=== PATIENT | male | born 1950 | race Caucasian/White ===

== ENCOUNTER 2018-08-14 19:36 | Inpatient (IN) ==
[2018-08-14] MEDS ORDERED: NORFLEX IM ONE (21:16)
[2018-08-14 22:26] LABS: BASO# 0.04 X1000 (0.0-0.2); BASO% 0.2 % (0.0-0.8); EOS# 0.38 X1000 (0.0-0.7); EOS% 1.9 % (0.0-10.0); HEMOGLOBIN 10.4 g/dL (14.0-18.0); IMM GRAN# 0.15 X1000 (0.0-0.04); IMM GRAN% 0.8 % (0.0-0.5); LYMPH# 0.91 X1000 (1.2-3.4); LYMPH% 4.7 % (20.5-51.1); MCH 29.3 PG (27-31); MCHC 32.5 g/dL (33-37); MCV 90.1 FL (81-99); MONO% 5.1 % (1.7-9.3); MPV 11.4 FL (7.4-10.4); NEUT# 17.08 X1000 (1.4-6.5); NEUT% 87.3 % (42.2-75.2); PLT 497 X1000 (130-400); RBC 3.55 XMIL (4.7-6.1); RDW 13.9 % (11.5-14.5); WBC 19.56 X1000 (4.8-10.8)
--- NOTE | 2018-08-14 23:00 | PROVIDER DOCUMENTATION ---
HPI-General Adult - General Chief Complaint: Weakness Stated Complaint: WEAK/FALLING Time Seen by Provider: 08/14/18 20:50 Source: patient Allergies/Adverse Reactions: Patient Allergies Allergy/AdvReac Type Severity Reaction Status Date / Time No Known Allergies Allergy Verified 09/20/16 09:43 Home Medications: Home Medication List Medication Instructions Recorded Confirmed Last Taken Type Atorvastatin Calcium [Lipitor] 80 mg PO DAILY 06/07/15 08/15/18 09/30/16 04:00 History Diltiazem HCl [Diltiazem 24Hr ER 360 mg PO DAILY 06/07/15 08/15/18 09/30/16 04:00 History (LA)] Ezetimibe [Zetia] 10 mg PO DAILY 06/07/15 08/15/18 09/30/16 04:00 History Levothyroxine [Synthroid] 150 microgm PO DAILY 06/07/15 08/15/18 09/30/16 04:00 History Ramipril 2 tab PO DAILY 06/07/15 08/15/18 09/29/16 07:00 History Calcitriol 0.5 mcg PO EVERY OTHER DAY 09/20/16 08/15/18 09/30/16 04:00 History Furosemide 80 mg PO BID 09/20/16 08/15/18 09/29/16 07:00 History Allopurinol 1 tab PO DAILY 08/15/18 08/15/18 Unknown History Folic Acid/Vit Bcomp,C [Sarah-Luciana 0.8 mg PO DAILY 08/15/18 08/15/18 Unknown History Tablet] Insulin Glargine,Hum.rec.anlog See Protocol 08/15/18 Unknown History [Lantus Solostar] - History of Present Illness -Gen Adult Nature of Presenting Problems: pt present to the ED with B/L leg pain for around 8 weeks, getting worse associated with weakness to the point he can't hold himself today and he fell twice with no injuries. pt denies back pain or recent long trip. he said PCP d/c lipitor recently. pt denies abdominal pain, chest pain, symptoms or cough. he denies fever, chills, dizziness or hypotension. Review of Systems - Adult - REVIEW OF SYSTEMS - ADULT Constitutional: reports: no symptoms reported Eyes: reports: no symptoms reported Ears, Nose, Mouth & Throat: reports: no symptoms reported Cardiovascular: reports: no symptoms reported. denies: chest pain Respiratory: reports: no symptoms reported Gastrointestinal: reports: no symptoms reported Genitourinary: reports: no symptoms reported Musculoskeletal: reports: see HPI Neurological: reports: see HPI Past History - Adult - PAST MEDICAL HISTORY-ADULT Review of Records: reports: Old Records Reviewed, Nursing Assessment Review, Medications Reviewed, Social history reviewed & non-contributory. Cardiovascular: reports: HTN, hyperlipidemia Endocrine/Immune: reports: Diabetes - PRIOR SURGERIES/PROCEDURES Surgical/Procedure History: reports: cholecystectomy - IMMUNIZATION STATUS Childhood Immunizations: See Nurse Assessment Flu Vaccine: See Nurse Assessment - FAMILY HISTORY Family History: reviewed, not pertinent Physical Exam-General - PHYSICAL EXAM-ADULT Initial Vital Signs Reviewed: Yes - CONSTITUTIONAL General Appearance: alert, no apparent distress - EYES Eyes: PERRL/EOMI - HEAD, EARS, NOSE, MOUTH & THROAT HENMT: normocephalic/atraumatic, moist mucous membranes, normal ENT inspection - NECK Neck: non-tender, full range of motion, supple - RESPIRATORY Respiratory: lungs clear, normal breath sounds - CARDIOVASCULAR Cardiovascular: regular rate, rhythm, no edema - GASTROINTESTINAL (ABDOMEN) Abdominal Exam: normal bowel sounds, non tender, soft - MUSCULOSKELETAL Back Exam: no CVA tenderness, no vertebral tenderness. 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 negative: motor weakness - PSYCHIATRIC Psych/Mental Status: normal thought content, normal thought process, oriented x 3 Progress - PLAN OF CARE/RESULTS Progress/Plan/Lab Results: Vital Signs - 8 hr 08/14/18 20:24 08/14/18 20:52 08/14/18 20:57 Temperature 98.7 F Pulse Rate 86 Respiratory Rate 20 Blood Pressure 92/44 157/57 130/71 O2 Sat by Pulse Oximetry 95 08/14/18 21:02 08/14/18 21:08 08/14/18 21:13 Temperature Pulse Rate Respiratory Rate Blood Pressure 149/58 158/44 115/48 O2 Sat by Pulse Oximetry 08/14/18 21:18 08/14/18 21:23 08/14/18 21:28 Temperature Pulse Rate Respiratory Rate Blood Pressure 103/49 132/61 162/67 O2 Sat by Pulse Oximetry 08/14/18 21:32 08/14/18 21:37 08/14/18 21:45 Temperature Pulse Rate Respiratory Rate Blood Pressure 153/66 98/74 85/69 O2 Sat by Pulse Oximetry 08/14/18 21:48 08/14/18 21:53 08/14/18 21:57 Temperature Pulse Rate Respiratory Rate Blood Pressure 107/50 140/59 99/85 O2 Sat by Pulse Oximetry 08/14/18 22:08 08/14/18 22:09 08/14/18 22:13 Temperature Pulse Rate Respiratory Rate Blood Pressure 134/82 145/75 102/58 O2 Sat by Pulse Oximetry 08/14/18 22:17 08/14/18 22:23 Temperature Pulse Rate Respiratory Rate Blood Pressure 117/58 105/48 O2 Sat by Pulse Oximetry Laboratory Results - last 24 hr 08/14/18 21:35 WBC 19.56 H RBC 3.55 L Hgb 10.4 L Hct 32.0 L MCV 90.1 MCH 29.3 MCHC 32.5 L RDW Std Deviation 13.9 Plt Count 497 H MPV 11.4 H Immature Gran % (Auto) 0.8 H Neut % (Auto) 87.3 H Lymph % (Auto) 4.7 L [place] % (Auto) 5.1 Eos % (Auto) 1.9 Baso % (Auto) 0.2 Immature Gran # (Auto) 0.15 H Neut # (Auto) 17.08 H Lymph # (Auto) 0.91 L [place] # (Auto) 1.00 H Eos # (Auto) 0.38 Baso # (Auto) 0.04 Orders Category Date Time Status cxr [CHEST-PORTABLE] [RAD] Stat Exams 08/14/18 22:34 Taken BLOOD CULTURE [BLDCUL] Stat Lab 08/14/18 22:46 Uncollected CBC WITH ELECTRONIC DIFF [HEME] Stat Lab 08/14/18 21:35 Completed CK TOTAL [CHEM] Stat Lab 08/14/18 21:35 Received COMPREHENSIVE METABOLIC PANEL [CHEM] Stat Lab 08/14/18 21:35 Received LACTATE, PLASMA [CHEM] Stat Lab 08/14/18 22:46 Uncollected MAGNESIUM [CHEM] Stat Lab 08/14/18 21:35 Received PHOSPHORUS [CHEM] Stat Lab 08/14/18 21:35 Received TROPONIN T Stat Lab 08/14/18 22:46 Ordered URINALYSIS W/POSS RFLX CULT [URINALYSIS] Stat Lab 08/14/18 22:33 Uncollected Orphenadrine [Norflex] Med 08/14/18 21:16 Discontinued 60 mg IM NOW ONE EKG [EKG] Stat Ther 08/14/18 22:41 Ordered Pt is dialysis pt with leukocytosis. BP was low at somepoint in the ER to the point I couldn't measure manually nor the nurse. dialysis pt usually has lower immunity with leukocutosis I called Nephrology Dr. Aguillon. He recommend broad spectrum AB, NS and admission (treat as presumptive sepsis). pt muscle pain could be from lipitor or could be a rare muscle disease and may need muscle biopsy. further investigation by Hospitalist. pt is dry today and can't provide peritoneal fluid for cultures. CXR and urinalysis unremarkable, infection source if there is any is unclear. Pt assessed multiple times during ER stay. Result Diagrams: 08/16/18 05:06 08/16/18 05:06 Departure - Departure Date of Disposition Decision: 08/16/18 Time of Disposition Decision: 22:58 DIAGNOSIS: ESRD (end stage renal disease) on dialysis, Bilateral leg pain Leukocytosis Qualifiers: Leukocytosis type: unspecified Qualified Code(s): D72.829 - Elevated white blood cell count, unspecified Disposition: ADMITTED INPATIENT 09 Certified Medical Emergency: Emergent Condition: Stable - Critical Care Note This patient required my direct & personal management of CC.: No Attestation - Physician/ LYNDON Attestation Patient care was provided by Advanced Practice Provider:: No The physician spent face to face time with patient:: Yes Advanced Practice Provider documentation review:: Supervising physician onsite and consulted in the evaluation and care of this patient. The physician did have a face to face encounter with the patient.
[2018-08-14 23:03] LABS: ALB/GLOB RATIO 0.7; CALCIUM 7.2 mg/dL (8.8-10.2); MAGNESIUM 2.2 mg/dL (1.5-2.7); POTASSIUM 3.8 mmol/L (3.5-5.1); TOTAL BILIRUBIN 0.23 mg/dL (0.20-1.00); TOTAL PROTEIN 7.4 g/dL (6.3-8.3)
[2018-08-14 23:14] LABS: CREATININE 12.6 mg/dL (0.7-1.2)
[2018-08-14] MEDS ORDERED: HUMULIN R IV ONE (23:15)
[2018-08-14] MEDS ORDERED: VANCOMYCIN 1 GM/NS 1 GM/250 ML IVPB IV ONE (23:35)
[2018-08-14] MEDS ORDERED: NS 1,000 ML IV ONE (23:35)
[2018-08-14] MEDS ORDERED: TAZIDIME 1 GM in NS 50 ML IV ONE (23:35)
--- NOTE | 2018-08-15 00:36 | EKG Report ---
Test Performed on : 08/14/2018 10:53:53 PM Test Reason : weakness Blood Pressure : / mmHG Vent. Rate : 087 BPM Atrial Rate : 088 BPM P-R Int : 166 ms QRS Dur : 094 ms QT Int : 434 ms P-R-T Axes : 054 015 156 degrees QTc Int : 522 ms Normal sinus rhythm. with sinus arrhythmia. ST & T wave abnormality, consider lateral ischemia Prolonged QT Abnormal ECG When compared with ECG of 20-SEP-2016 10:04, Inverted T waves have replaced nonspecific T wave abnormality in Lateral leads QT has lengthened Unconfirmed Result
[2018-08-15 01:37] LABS: URINE SOURCE CATH
[2018-08-15 01:41] LABS: BILIRUBIN URINE NEGATIVE (NEGATIVE); BLOOD URINE MODERATE (NEGATIVE); COLOR YELLOW; GLUCOSE URINE 500 mg/dL (NEGATIVE); KETONE URINE NEGATIVE (NEGATIVE); LEUKOCYTES URINE NEGATIVE (NEGATIVE); NITRITE URINE NEGATIVE (NEGATIVE); PH URINE 5.5; SP GRAVITY URINE 1.014; TURBIDITY URINE HAZY (CLEAR); UROBILINOGEN URINE NORMAL (NORMAL)
[2018-08-15 01:57] LABS: PROTEIN URINE 300 mg/dL (NEGATIVE)
[2018-08-15 02:03] LABS: UR EPITHELIAL CELLS <10 /HPF (<10); URINE BACTERIA NEGATIVE /HPF; URINE CASTS NONE SEEN; URINE CRYSTALS NONE SEEN; URINE RBC <10 /HPF (<10); URINE SMALL ROUND CELLS NONE SEEN; URINE YEAST NONE SEEN
[2018-08-15] MEDS ORDERED: ASPIRIN PO ONE (03:17)
[2018-08-15] MEDS ORDERED: NS 1,000 ML IV SCH (04:17)
[2018-08-15] MEDS ORDERED: TYLENOL PO PRN ×2 (04:17→06:45)
[2018-08-15] MEDS ORDERED: VANCOMYCIN IV PER PHARMACY MISC SCH (04:17)
[2018-08-15 04:42] LABS: URINE WBC 20-40 /HPF (<10)
--- NOTE | 2018-08-15 05:11 | HISTORY AND PHYSICAL ---
PRIMARY CARE PHYSICIAN: [place] Hope MD REASON FOR ADMISSION: Ten-week history of lower extremity pain, 2-day history of lower extremity weakness and ataxia, with fall. HISTORY OF PRESENT ILLNESS: Mr. Remy Lee is a 67-year-old male with past medical history of chronic kidney disease stage 5, on peritoneal dialysis; type 2 diabetes; hypertension; possible peripheral arterial disease; hyperlipidemia; hypothyroidism. He comes in today complaining of 10- week history of worsening lower extremity pain in the posteromedial aspect of both lower extremities, worse when he tries to ambulate. He said the pain is sharp, shooting pain, sometimes radiating down to his feet. He denies any color or discoloration of his lower extremities. He denies any lower back pain, fecal or urinary incontinence, numbness or tingling. He came in today primarily because over the last 2 days he has been unable to stand and says his legs give out on him. He has tried to walk and has fallen several times. He says he has no control of his lower extremities. The patient denies any cardiorespiratory symptoms. No GI or complaints. No abdominal pain. No fever or chills. No recent change in his medications. He is still voiding, but he said that tonight when it was time for his peritoneal dialysis, they were unable to extract any peritoneal fluid. He denies any lightheadedness. No polyuria or polydipsia. No visual changes. No focal weakness elsewhere. REVIEW OF SYSTEMS: Twelve system review was done. Positive findings per HPI. The patient denies any weight loss. ALLERGIES: None. MEDICATIONS: Home medications have not been reconciled, but per old records he is on atorvastatin, Lantus, Lasix, Cardizem, sodium bicarbonate, Norvasc, ramipril, Zetia and Synthroid. PAST SURGICAL HISTORY: He has had cholecystectomy. FAMILY HISTORY: Diabetes, but no cancer, kidney disease or heart disease in first-degree relatives. SOCIAL HISTORY: He does not actively smoke, drink or use drugs. He lives with his . LABORATORY DATA: White count 20,000, hemoglobin and hematocrit 10 and 32, platelets 497,000, 87% neutrophils. BUN is 96 and 12. The last creatinine was 4.8, but that was in 2017. Glucose 349. CK is 224. Troponin 0.43 and this is elevated from 2016 at 0.059. Protein is 300, glucose 500, moderate blood. DIAGNOSTIC DATA: Chest film does not show any gross infiltrates or effusions. Borderline for mild poorly penetrated film. No cardiomegaly. PHYSICAL EXAMINATION: VITAL SIGNS: Blood pressure is 109/73, heart rate 95, respirations 19, temperature is 98.7 degrees. The patient was reportedly noted to have efpo-ca-vjzsrf blood pressure when he came into the hospital. After about 1 L of fluid his blood pressure has come to 107/70 initially. He is 95% on room air; 74% was listed, but this was an error. GENERAL: He is a chronically ill, middle-aged man, not in acute distress. He is alert and oriented to person, place and time, with normal mood and affect. HEENT: Head is normocephalic, atraumatic. Eyes: EOMI. He is anicteric. Not pale. ENT and oropharyngeal exam is grossly normal. No central cyanosis. NECK: Supple. No JVD, carotid bruit or thyromegaly. CHEST: Clear when auscultated with good air entry in both lung almeida. CARDIOVASCULAR: First and second heart sounds heard. No gallops. Ejection systolic murmur 2/6 is heard. Rhythm is regular. ABDOMEN: Full, soft. PD catheter close to the upper quadrant area. No surrounding erythema. Exudation at the site of insertion of PD tube. No tenderness. Bowel sounds normal. No mass or organomegaly. RECTAL: Exam is deferred. EXTREMITIES: The patient has significant diminished pulses distally in all extremities. Barely palpable pulses distally in the right lower extremity. No color discoloration. No edema. No clubbing or peripheral cyanosis. Rhythm is symmetrical and regular in the upper extremities, although weak. NEUROLOGIC: No gross focal deficits. No asterixis. SKIN: Intact. No breakdown, lesions or erythema. He does have chronically healing ulcers on the knees of both lower extremities. MUSCULOSKELETAL: The patient is mildly sarcopenic diffusely. ASSESSMENT: 1. Probable early-onset sepsis. 2. Endstage kidney disease. 3. Uncontrolled type 2 diabetes. 4. Hypertension. 5. Oio-VW-lviqjlqni myocardial infarction type 2. 6. Hypothyroidism. 7. Hyperlipidemia. 8. Lower extremity weakness, questionable. 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 9. Peripheral arterial disease, probably severe. PLAN: Dr. Enrique was contacted, and the patient has been given IV Fortaz and vancomycin, and he will adjust accordingly pending cultures, i.e. blood cultures. The patient is unable to give us any peritoneal aspirate, and hopefully maybe tomorrow he may have some sample to offer us to send off. The patient's troponin is mildly elevated with corresponding CK elevation, which makes me suspect that the elevated troponin could be from underlying chronic kidney disease with demand ischemia. We will do serial cardiac enzymes. Consult Cardiology. Give the patient onetime dose of aspirin, and probably continue with Plavix because the patient's clinical picture is more consistent with peripheral arterial disease. The patient did mention to me that he just got off a long-distance trip, and on my examination which I forgot to include was the patient did have tenderness along the course of his right saphenous vein and tenderness posteriorly in his left leg. We will get both venous Doppler studies. If these are negative, we will recommend CT angiogram to get a better visualization of the patient's arterial tree of his lower extremities; however, though he has findings strongly suggestive of peripheral arterial disease, he has also neurological symptoms. I forgot to mention that his DTRs were equivocal. He did have 3/5 power in his lower extremities. No spinal tenderness was noted. The patient did not have any sensory deficit, but it leads me to wonder this patient does not have some motor neuropathy. MRI was ordered to rule out spinal involvement. If this is normal and he still continues to have this weakness, it will be advisable to consult Neurology for possible further evaluation. Sliding scale and Lantus will be continued in this patient. The patient will be admitted to the unit due to the guarded prognosis of this situation. cc: MD West Cortes MD MTDD
--- NOTE | 2018-08-15 05:18 | Diag Imaging Result Doc PS360 ---
EXAM: CHEST-PORTABLE HISTORY: elevated wbc TECHNIQUE: Chest single view COMPARISON: 06/26/2015 FINDINGS: The lungs are well expanded. The heart is not enlarged. The vessels are not distended. There are no infiltrates. No effusion identified. IMPRESSION: No pneumonia. Electronically signed by Scott Dubon 08/15/2018 5:16 AM
[2018-08-15] MEDS: HEPARIN SUBQ SCH ×2 (05:31→15:48)
[2018-08-15] MEDS: HUMALOG SUBQ SCH ×4 (06:31→21:33)
[2018-08-15] MEDS ORDERED: ROCALTROL PO SCH (09:00)
[2018-08-15 09:25] LABS: BASO# 0.05 X1000 (0.0-0.2); BASO% 0.2 % (0.0-0.8); EOS% 3.2 % (0.0-10.0); HEMATOCRIT 29.9 % (42.0-52.0); HEMOGLOBIN 9.5 g/dL (14.0-18.0); IMM GRAN# 0.15 X1000 (0.0-0.04); IMM GRAN% 0.7 % (0.0-0.5); LYMPH# 1.05 X1000 (1.2-3.4); LYMPH% 4.8 % (20.5-51.1); MCH 29.1 PG (27-31); MCHC 31.8 g/dL (33-37); MCV 91.7 FL (81-99); MONO# 1.33 X1000 (0.11-0.59); MONO% 6.1 % (1.7-9.3); MPV 11.4 FL (7.4-10.4); PLT 444 X1000 (130-400); RBC 3.26 XMIL (4.7-6.1); WBC 21.68 X1000 (4.8-10.8)
[2018-08-15] MEDS: LIPITOR PO SCH (09:39)
[2018-08-15] MEDS: SYNTHROID PO SCH (09:47)
[2018-08-15] MEDS: PLAVIX PO SCH (09:47)
[2018-08-15 09:56] LABS: ALB/GLOB RATIO 0.6; ALBUMIN 2.5 g/dL (3.5-5.0); POTASSIUM 3.4 mmol/L (3.5-5.1); TOTAL BILIRUBIN 0.2 mg/dL (0.20-1.00); TOTAL PROTEIN 6.6 g/dL (6.3-8.3)
[2018-08-15 10:04] LABS: CREATININE 12.8 mg/dL (0.7-1.2)
[2018-08-15 10:05] LABS: CALCIUM 6.6 mg/dL (8.8-10.2)
[2018-08-15 10:21] LABS: SED RATE 130 mm/hr (0-15)
[2018-08-15 11:00] LABS: BANDS 4 % (0-1); LYMPHS 2 % (21-51); MONO 10 % (1-9); SEGS 82 % (42-75)
[2018-08-15 11:01] LABS: HYPOCHROM 1+; LARGE PLATELETS 1+
--- NOTE | 2018-08-15 11:35 | CARDIOLOGY CONSULTATION ---
DATE: 08/15/2018 REASON FOR CONSULTATION: Cardiology was consulted for abnormal troponin. Patient has chronic renal failure on hemodialysis. HISTORY OF PRESENT ILLNESS: Patient comes with complaints of having had arthritis in his knees and has had injected but over the last couple of weeks, he has noticed increasing pain in his lower extremities around the knees as well. They had been to [place] and had returned. He complains of excruciating pain around both knees with radiation up to his groin area. He had venous Dopplers done this morning which was negative for DVT. From a cardiac standpoint, he denies any chest pain. There is no previous cardiac history. Denies palpitations or syncope. REVIEW OF SYSTEM: Gastrointestinal: There is no history of nausea, vomiting, diarrhea. There is no history of hematemesis or melena. Central nervous system: No focal weakness to suggest a CVA or TIA. Genitourinary: There is no dysuria or hematuria. Musculoskeletal: As above. PAST MEDICAL HISTORY: 1. Diabetes. 2. Hypertension. 3. Chronic renal failure on peritoneal dialysis. 4. Hyperlipidemia. 5. Arthritis. 6. History of cholecystectomy. 7. There is no history of alcohol abuse. The patient does not smoke. PHYSICAL EXAMINATION: Vital Signs: Blood pressure was 107/84. Cardiovascular: First and second heart sounds were heard. There was no S3 gallop. Respiratory System: Normal air entry. There are no crepitations and rhonchi. Abdomen: Soft, nontender. There was no guarding. PD catheter was noted. There was no tenderness. Extremities: Patient had significant tenderness in both his knees with tenderness in lower thighs bilaterally as well. LABORATORY DATA: Sodium 138, potassium 3.4, BUN 98, creatinine 12.8, calcium 6.6. Troponin abnormal at 0.388. WBC 21.68, hemoglobin 9.5, hematocrit 29, platelet count of 444,000. ASSESSMENT AND PLAN: Mr. Remy Lee is a 67-year-old gentleman with history of diabetes, hypertension, hyperlipidemia, arthritis, chronic renal failure on peritoneal dialysis. Is admitted with weakness, bilateral lower extremity pain. 1. From a cardiac standpoint, his abnormal troponin is secondary to renal insufficiency. We will get an echocardiogram to assess cardiac and valvular function. Chest x-ray did not reveal any ST-T changes to suggest ischemia or infarction. 2. The patient has significant tenderness of both knees with elevated white count. Blood cultures are pending. I suspect this is septic arthritis. We will consult Orthopedics, in addition Dr. Miles has also been consulted. 3. Hypertension and diabetes. Continue with his home medications. I have not made any other changes. Thank you for the consult. cc: Dayron Pérez MD
[2018-08-15] MEDS: MAXIPIME 1 GM in NS 50 ML IV SCH (11:40)
--- NOTE | 2018-08-15 11:41 | EKG Report ---
Test Performed on : 08/15/2018 11:18:53 AM Test Reason : Elevated troponins Blood Pressure : / mmHG Vent. Rate : 092 BPM Atrial Rate : 092 BPM P-R Int : 162 ms QRS Dur : 090 ms QT Int : 418 ms P-R-T Axes : 050 008 166 degrees QTc Int : 516 ms Normal sinus rhythm. Left ventricular hypertrophy with repolarization abnormality Prolonged QT Abnormal ECG When compared with ECG of 14-AUG-2018 22:53, (Unconfirmed) No significant change was found Confirmed by Jordan Fairchild MD ([id number]) on 08/15/2018 5:00:55 PM
[2018-08-15 12:27] LABS: CK INDEX 2.1 (0.0-2.5); CK-MB 7.16 ng/mL (0.0-5.0)
--- NOTE | 2018-08-15 14:20 | NEPHROLOGY CONSULTATION ---
DATE: 08/15/2018 REASON FOR ADMISSION: A 10-week history of lower extremity pain with weakness and edema with recent fall. Date of consult is 08/15/2018. REASON FOR CONSULT: End-stage renal disease with assistance with medical management. HISTORY OF PRESENT ILLNESS: Mr. Lee is a 67-year-old white male who is known to our outpatient services for chronic kidney disease stage 5D, who receives peritoneal dialysis on a cycler during the evening and nighttime hours. The patient has had complaints of increased lower extremity swelling. We had changed his peritoneal dialysis fluid to assist with his fluid volume management and assist with his swelling. Unfortunately, yesterday, patient states that he became increasingly weak, his legs gave out from under him. He states that he did not pass out. There is no syncopal episode. He does have bilateral lower extremity pain with wounds to bilateral knees that are darkened but healing. No drainage noted. States that he has not had any nausea, vomiting or diarrhea, just poor appetite. No fever or chills. No chest pain. No increased work of breathing. Positive lower extremity swelling. He does deny any lower back pain. No urinary incontinence. No numbness or tingling to the lower extremities. He states that his peritoneal dialysis fluid has been clear, last drained yesterday morning. PAST MEDICAL HISTORY: Positive for end-stage renal disease with peritoneal dialysis treatment per cycler, type 2 diabetes, hypertension, questionable peripheral arterial disease, hyperlipidemia, hypothyroidism, anemia of chronic disease and osteodystrophy of chronic disease. PAST SURGICAL HISTORY: Cholecystectomy, placement of PD catheter. SOCIAL HISTORY: He is . He lives with his spouse. He is on disability. Does not actively smoke, use alcohol or illicit drug use. FAMILY HISTORY: Positive for diabetes, no cancer, positive for kidney disease. No dialysis. No heart disease. No 1st degree relatives. ALLERGIES: No known drug allergies. HOME MEDICATIONS: Have yet to be reconciled. He is on atorvastatin, Lantus, Lasix, Cardizem, sodium bicarbonate, Norvasc, ramipril, Zetia, and Synthroid. REVIEW OF SYSTEMS: Times 10 with pertinent positives listed above in the HPI. VITAL SIGNS: His most recent vital signs, temperature 98.7 degrees, blood pressure 129/77, heart rate 92, respirations 22. He is currently on room air. Last recorded saturation is 100%. He has not voided yet that has been recorded. LABORATORY DATA: Sodium 134, potassium 3.8, chloride 85, CO2 19, BUN 96, creatinine 12.6, glucose 349. His anion gap is 30. His calcium is 7.2, phosphorus 12.3, albumin of 3. White count 19.56, hemoglobin 10.4, hematocrit 32, platelet count 499,000. PHYSICAL EXAMINATION: General: This is a 67-year-old white male resting quietly in bed. He appears chronically ill. No acute distress. Skin: Warm and dry. HEENT: Normocephalic, atraumatic. Conjunctiva is pale pink. He has PALOMO. Mucous membranes are dry. Neck: Supple. Trachea midline. No evidence of JVD. Cardiovascular: Regular rate and rhythm. He has a positive murmur. Lungs: Clear to auscultation bilaterally. Equal excursion on room air. Abdomen: Soft. No tenderness noted. He does have a PD catheter intact without redness or drainage. Genitourinary: Not inspected, minimal void with dialysis assist. Extremities: The patient does have some woodiness to the lower extremities. Slight positive venous stasis. No clubbing or cyanosis. Pulses palpable. Integumentary: No rashes are evident. Patient does have a slight lesion noted to the right side of his nose. He is to see his staffing rn in a month. Neurological: The patient is able to move all extremities well. Alert and oriented x3. No asterixis present. ASSESSMENT AND PLAN: 1. Chronic kidney disease stage 5D. The patient is a peritoneal dialysis patient. He uses a cycler in the evening. He is currently being resuscitated with IV fluid bolus 1500 mL total over the next 10 hours. We will re-evaluate his labs at that time for placement of PD prescription. 2. Electrolytes and acid-base balance. Patient is mildly acidotic secondary to #1. The patient does have a widened anion gap of 30. We will monitor that one. 3. Anemia. This remains low but stable. 4. Possible non-STEMI. This is being evaluated by the primary care team. Cardiology has been consulted. 5. Questionable sepsis. Patient has received vancomycin and Fortaz for a white count of 19.56. Blood cultures are currently pending. I would like to thank you for allowing us to follow with this patient. Dictated by MEÑO Medina for Hermann Aguillon MD Face to face encounter, data reviewed, discussed with Paige Galvan on 08/15/18. I agree with the above assessment and plan of care. cc: MEÑO Medina MD [facility]
[2018-08-15] MEDS: DOXYCYCLINE PO SCH ×2 (16:00→21:20)
--- NOTE | 2018-08-15 19:02 | INFECTIOUS DISEASE CONSULT REP ---
DATE: 08/15/2018 CONCLUSION: The patient has a leukocytosis, the exact etiology of which I am uncertain. He does have leg pain and his CPK is up, and he may have some type of myositis or rhabdomyolysis. RECOMMENDATIONS: I agree with treating the patient with vancomycin, and to this, I have added cefepime, the dose of which has been reduced because the patient is on peritoneal dialysis. Also, I have added doxycycline. I am going to order that peritoneal fluid be sent for cell count and culture. DISCUSSION: The patient tells me approximately 7 weeks ago, his legs became very sore, and in the past week, he has noticed that there is weakness in the legs. He has not had any nausea or vomiting. He has not had any unusual foods that he does not normally have. He did go on a trip to [place], but he was not out in the water, he was not out in the terrazas, and did not notice any ticks on him. The patient's laboratory studies show a white count of 21,680, hemoglobin 9.5, and platelet count 444,000. Creatinine is 12.8, GFR is 4. Liver function studies are normal. CK is 224. Chest x-ray shows no pneumonia. Blood and urine cultures are pending. Urinalysis showed some white cells, but no bacteria. REVIEW OF SYSTEMS: Eyes and ears: He sees and hears okay. Neck: No stiffness. Respiratory: No cough or shortness of breath. Cardiac: No chest pain or palpitations. Gastrointestinal: No nausea, vomiting, or diarrhea. Genitourinary: No dysuria. Neurologic: See present illness. PREVIOUS HOSPITALIZATIONS AND OPERATIONS: He has had a cholecystectomy. He had a port placed for his peritoneal dialysis. MEDICAL DISEASES: Positive for diabetes mellitus, hypertension, and end-stage renal disease for which patient does peritoneal dialysis. INFECTIOUS DISEASE HISTORY: Positive for pneumonia. FAMILY HISTORY: Positive for diabetes mellitus, hypertension, and cancer. SOCIAL HISTORY: [place] . He has dogs and cats for pets. He owns a machine shop. He does not smoke cigarettes, drink alcoholic beverages, or abuse drugs. ALLERGIES: Patient's chart lists no known drug allergies. HOME MEDICATIONS INCLUDE: 1. Allopurinol. 2. Atorvastatin. 3. Diltiazem. 4. Zetia. 5. Furosemide. 6. Insulin. 7. Synthroid. 8. Ramipril. PHYSICAL EXAMINATION: Vital Signs: Temperature is 99 degrees, pulse 92, respirations 23, blood pressure 107/84. General: This seems to be a fairly healthy-appearing, elderly male. He is in no acute distress. Head/eyes/ears/nose/throat: He can hear my spoken words and see near objects. He does not have any white patches in his mouth. Neck: No meningismus. Lungs: Clear to auscultation. Cardiovascular: Heart rate is regular. Abdomen: Soft and nontender. The patient has a peritoneal dialysis catheter in place. The catheter site is not erythematous or purulent. Neurologic: The patient is alert. He can move his arms well. He can move his legs, but he is weak and it does cause him pain to move his legs. There is no erythema around the legs. The patient's memory as regarding his medical history is intact. Integument: No rash noted. Thank you for the consult. cc: London Miles MD
--- NOTE | 2018-08-15 20:02 | ECHO REPORT ---
ORDER DATE: 08/15/2018 INTERPRETING PHYSICIAN: Berto Hayes MD. CLINICAL INDICATIONS: Dyspnea. Possible CHF. M-MODE MEASUREMENTS: Left ventricle end diastole: 4.7 cm. Left ventricle end systole: 3.5 cm. Posterior wall: 0.9 cm. Interventricular septum: 0.9 cm. Left atrium: 3.3 cm. Aortic root: 4.0 cm. SUMMARY OF 2-DIMENSIONAL IMAGIN. Left ventricular function is normal. Ejection fraction is 55%. Optison was added to optimize visualization of endocardium. There is no wall motion abnormality. 2. The right ventricle appears to be normal. 3. The aortic valve appears to be grossly normal. Color flow mapping unremarkable. 4. The mitral annulus shows moderate calcification. Color flow mapping unremarkable. 5. Pulse wave Doppler of mitral inflow shows reversal of the E and the A ratio. Ratio is 0.7. 6. Tissue Doppler of septal and lateral mitral annulus averages 5 cm. 7. There is impaired left ventricular relaxation suggesting diastolic dysfunction. 8. Pulse wave Doppler of pulmonary venous flow is normal. 9. The pulmonic valve is unremarkable. 10.The tricuspid valve shows mild degree of regurgitation. 11.Pulmonary pressure is estimated at 30 to 35 mmHg. 12.There is no pericardial effusion, mass, and no thrombus. Clinical correlation is recommended. cc: MD Amberly Graves MD
--- NOTE | 2018-08-15 20:41 | ORTHOPAEDICS CONSULTATION ---
DATE: 08/15/2018 CHIEF COMPLAINT: Lower extremity weakness. HISTORY OF PRESENT ILLNESS: Mr. Lee is a 67-year-old male, who presents complaining of lower extremity weakness. About 2 weeks ago, he presented to our office where Dr. Irene gave him injections in his bilateral knees. He denies any pain in his knee at this time. The patient was admitted for further medical issues. The patient has a white count of 21,000 and we asked for further evaluation and treatment regarding his bilateral knees to rule out septic arthritis. PAST MEDICAL HISTORY, PAST SURGICAL HISTORY, ALLERGIES AND MEDICATIONS: See the admission history and physical. REVIEW OF SYSTEMS: Positive for bilateral leg weakness. All others negative. PHYSICAL EXAMINATION: General: This is a well developed, well nourished male. He is alert, oriented, cooperative with the examination. He is in no acute distress. Vital Signs: Stable. He is afebrile. HEENT: Head is normocephalic, atraumatic. Neck: Supple. Respiratory: Breathing is nonlabored. Abdomen: Nondistended. Neurologic: Sensation of his bilateral lower extremities is intact. Musculoskeletal: Examination of his bilateral knees reveals no erythema or warmth. There is no effusion noted. He has good range of motion of his bilateral knees without pain. ASSESSMENT: Likely bilateral knee osteoarthritis. PLAN: We do not feel that he has septic arthritis of his bilateral knees at this time. We will continue to monitor him. If he begins to develop increasing pain in his bilateral knees and an effusion, we can aspirate his knee for culture, but we do not feel any fluid on his knee at this time. Dictated by SHELIA Lomeli for Km Mendoza MD cc: SHELIA Lomeli MD
[2018-08-15] MEDS ORDERED: NORCO-7.5 PO ONE (23:16)
[2018-08-15] MEDS: ZOFRAN IV PRN (23:34)
[2018-08-16] MEDS: HEPARIN SUBQ SCH ×2 (04:29→17:31)
[2018-08-16 05:17] LABS: HEMATOCRIT 28.9 % (42.0-52.0); HEMOGLOBIN 9.2 g/dL (14.0-18.0); MCH 29.1 PG (27-31); MCHC 31.8 g/dL (33-37); MCV 91.5 FL (81-99); MPV 11.2 FL (7.4-10.4); PLT 436 X1000 (130-400); RBC 3.16 XMIL (4.7-6.1); RDW 13.9 % (11.5-14.5); WBC 20.11 X1000 (4.8-10.8)
[2018-08-16 05:18] LABS: BASO# 0.04 X1000 (0.0-0.2); BASO% 0.2 % (0.0-0.8); EOS# 0.42 X1000 (0.0-0.7); EOS% 2.1 % (0.0-10.0); IMM GRAN# 0.13 X1000 (0.0-0.04); IMM GRAN% 0.6 % (0.0-0.5); LYMPH# 1.12 X1000 (1.2-3.4); LYMPH% 5.6 % (20.5-51.1); MONO# 0.93 X1000 (0.11-0.59); MONO% 4.6 % (1.7-9.3); NEUT# 17.47 X1000 (1.4-6.5); NEUT% 86.9 % (42.2-75.2)
[2018-08-16] MEDS: HUMALOG SUBQ SCH ×4 (06:46→19:59)
[2018-08-16 06:53] LABS: POTASSIUM 3.9 mmol/L (3.5-5.1)
[2018-08-16 06:54] LABS: ALB/GLOB RATIO 0.7; ALBUMIN 2.4 g/dL (3.5-5.0); TOTAL BILIRUBIN 0.23 mg/dL (0.20-1.00)
[2018-08-16 07:08] LABS: CREATININE 12.8 mg/dL (0.7-1.2)
[2018-08-16 07:09] LABS: CALCIUM 6.4 mg/dL (8.8-10.2)
[2018-08-16] MEDS: LIPITOR PO SCH (08:11)
[2018-08-16] MEDS: DOXYCYCLINE PO SCH ×2 (08:16→20:00)
[2018-08-16] MEDS: SYNTHROID PO SCH (08:16)
[2018-08-16] MEDS: PLAVIX PO SCH (08:17)
--- NOTE | 2018-08-16 09:10 | Diag Imaging Result Doc PS360 ---
EXAM: SHOULDER-RIGHT HISTORY: pain and immobilization TECHNIQUE: Right shoulder two views COMPARISON: None. FINDINGS: No fracture. No dislocation. No separation at the acromioclavicular joint. Long-standing arthritis to the acromioclavicular joint. Severe atherosclerosis. IMPRESSION: Acromioclavicular arthritis. Electronically signed by Scott Dubon 08/16/2018 9:07 AM
--- NOTE | 2018-08-16 09:11 | Diag Imaging Result Doc PS360 ---
EXAM: ELBOW COMPLETE RIGHT HISTORY: pain s/p fall TECHNIQUE: Right elbow, three views COMPARISON: None. FINDINGS: No fracture. No dislocation. Severe atherosclerosis. IMPRESSION: No acute bony injury. Electronically signed by Scott Dubon 08/16/2018 9:08 AM
--- NOTE | 2018-08-16 09:15 | Diag Imaging Result Doc PS360 ---
EXAM: CT LUMBAR SPINE W/O CONTRAST 08/16/2018 HISTORY: fever/back pain TECHNIQUE: This exam was performed using automated exposure control, adjustment of mA or kV according to patient size, and/or use of iterative reconstruction technique. COMMENT: There is extensive arteriosclerosis. There is some perinephric stranding in both kidneys. There is no evidence of abdominal aortic aneurysm. There is no evidence of acute fracture or subluxation in the lumbar spine. There is vacuum disc phenomenon at T11-12 and bridging osteophyte formation at T10-11. There is anterior osteophyte formation at L2-3. There is no evidence of spondylolysis or spondylolisthesis. At the T10-11 level there is no evidence of spinal or foraminal stenosis. At T11-12 there is no evidence of spinal or foraminal stenosis. At T12-L1 there is no spinal or foraminal stenosis. At L1-2 there is no spinal or foraminal stenosis. At L2-3 there is no evidence of spinal or foraminal stenosis. At L3-4 there is some disc bulge and ligamentum flavum hypertrophy without evidence of significant spinal or foraminal stenosis. At the L4-5 level there is ligamentum flavum hypertrophy and disc bulge with a mild degree of spinal stenosis but no evidence of foraminal stenosis. At L5-S1 there is disc bulge slightly to the right of the midline without evidence of significant spinal or foraminal stenosis. IMPRESSION: No evidence of acute bony abnormality. Mild spinal stenosis at L4-5. Electronically signed by Sudhakar Elmore 08/16/2018 9:12 AM
[2018-08-16] MEDS: ZOFRAN IV PRN (10:51)
[2018-08-16 13:17] LABS: CALCIUM 6.1 mg/dL (8.8-10.2)
[2018-08-16 13:36] LABS: BODY FLUID SOURCE PERITONEAL FLUID
[2018-08-16 13:37] LABS: WBC BF 320 /cumm
[2018-08-16 14:07] LABS: MONOS 78 %; POLYS 22 %
--- NOTE | 2018-08-16 14:33 | INFECTIOUS DISEASE PROGRESS NO ---
DATE: 08/16/2018 PRESENT ILLNESS: The patient has pain in his legs, especially in the upper part of both legs. They also are tender. The patient has a leukocytosis. His CPK is elevated. MEDICATIONS: The patient is on a combination of vancomycin and cefepime and doxycycline and it is day 1 of treatment with all 3 of these agents. PHYSICAL EXAMINATION: Vital Signs: Temperature is 99 degrees, pulse 88, respirations 18, blood pressure 119/53. General: This is a somewhat ill-appearing elderly male. He is in no acute distress. Head, Eyes, Ears, Nose, and Throat: Can hear my spoken words and see near objects. He does not have any white patches on his tongue. Neck: No meningismus. Lungs: Clear to auscultation. Cardiovascular: Heart rate is regular. Abdomen: Soft and nontender. The dialysis catheter site is not erythematous or purulent. Extremities: Both legs are tender in the lower thigh area. The patient does not have any swelling of either knee. Neurologic: Patient is alert. He can move his extremities. There is no tremor. ASSESSMENT AND PLAN: Patient tells me overall he is feeling better. Unfortunately, I am unable to say exactly what the cause of his leukocytosis and leg pain is. Since the patient is feeling better, I plan to continue with the current antibiotics, namely cefepime, vancomycin, and doxycycline. Unfortunately, the patient's white count still remains elevated. PATIENT'S COMORBIDITIES: 1. He has end-stage renal disease for which he is on peritoneal dialysis. 2. He also is a diabetic. 3. The patient has multiple areas where he has had some bruises or cuts secondary to when he fell. The areas have eschars on them. There is no surrounding erythema. cc: London Miles MD
--- NOTE | 2018-08-16 15:14 | NEPHROLOGY PROGRESS NOTE ---
DATE: 08/16/2018 TIME SEEN: 0650. SUBJECTIVE: Mr. Lee complains of pain to his upper thigh, inner aspect region, with immobility to his right upper shoulder and elbow. Denies lightheadedness, chest pain, or increased work of breathing. LABORATORY DATA: Sodium 134, potassium 3.9, chloride 91, CO2 of 13, BUN 107, creatinine 12.8, glucose 127, his anion gap is 30, calcium 12.3, phosphorus 12.3. Last albumin completed was low. White count 20.1, hemoglobin 9.2, hematocrit 28.9, with a platelet count of 436,000. The patient had an echocardiogram indicating his ejection fraction of 55%. Blood cultures are negative. PHYSICAL EXAMINATION: Vital Signs: Temperature 98.7 degrees, blood pressure 126/55, heart rate is 80, respirations 18. He is on room air. Last recorded saturation is 96%. He has had 1590 in, 350 out to void. General: This is a 67-year-old white male. He is resting quietly in bed. He appears in no acute distress. Skin: Warm and dry. HEENT: Normocephalic, atraumatic. Conjunctiva is pale pink. He has PALOMO. Mucous membranes are dry. Neck: Supple. Trachea midline. No evidence of JVD. Cardiovascular: He is regular rate and rhythm. He is sinus rhythm on the monitor. He has a soft murmur. No gallop. Lungs: Clear to auscultation bilaterally. Equal excursion on room air. Abdomen: Soft, nontender. Positive bowel sounds. PD catheter remains dry and intact without redness or drainage. Genitourinary: Not inspected. Minimal void with dialysis assist. Extremities: Has some woodiness to the lower extremities. There is a hardened area to both inner aspects of bilateral thighs, right greater than left. There is no lower extremity clubbing or cyanosis. Palpable pulses. Integumentary: Indentation to his bilateral inner aspect of his thighs. No rashes are evident, with slight lesions noted to the right side of his nose. Neurological: The patient moves all extremities well, though with pain to the lower extremities. Minimal movement from the right shoulder. Neurologic: Alert and oriented x3. No asterixis present. ASSESSMENT AND PLAN: 1. Chronic kidney disease stage 5D. The patient is currently dry. We will have them instill 1 liter of peritoneal dialysis fluid to allow dwell time of 2 to 4 hours to send a cell count for Dr. Miles in regards with continued leukocytosis. Otherwise, once this is completed, we will plan for cycler to be placed on this evening per his routine prescription. 2. Electrolytes and acid-base balance. The patient has hyperphosphatemia with a phosphorus of 12.3. Calcium remains low at 6.4. We will check a PTH with calcium and phosphorus. Check a sedimentation rate and a CRP. His TSH this morning is 8.53. 3. Electrolytes and acid-base balance with correction on dialysis. 4. Anemia. This remains stable. 5. Continued leukocytosis. The patient has noted indentation to his bilateral inner aspect of his thighs with an elevated phosphorus, low calcium. We will check a sedimentation rate as mentioned, CRP, and PTH. 6. Hypothyroidism. We will defer to the primary care team. I would like to thank you for allowing us to follow with this patient. CRP, ESR are quite elevated. I asked Dr. Herrera to perform a skin biopsy medial thigh to exclude calciphylaxis. rg Dictated by MEÑO Medina for Hermann Aguillon MD Data reviewed, discussed with Paige Galvan on 08/16/18. I agree with the above assessment and plan of care. rg cc: MEÑO Medina MD [facility]
--- NOTE | 2018-08-16 21:18 | PROGRESS NOTE ---
DATE: 08/16/2018 SUBJECTIVE: The patient is resting comfortably in bed. He states that he has been having some pain in his right elbow and his legs. OBJECTIVE: Vital Signs: Temperature 98.1 degrees, blood pressure 125/59, heart rate 90, respirations 20, O2 saturation is 97% on room air. General: This is a chronically ill-appearing elderly male, lying in bed in no acute distress. Heart: S1, S2 normal. Regular rate and rhythm. Lungs: Clear to auscultation bilaterally. Abdomen: Positive bowel sounds. Soft, nontender, nondistended. Extremities: No edema, no cyanosis. The patient has multiple scabs and healing wounds on his legs. Neurologic: The patient is alert and oriented x4. DIAGNOSTIC STUDIES: White blood cell count 20, hemoglobin 9.2, hematocrit 28, platelets 436,000. Sodium 135, potassium 3.9, chloride 91, CO2 of 13, BUN 107, creatinine 12, glucose 127, calcium 6.1, phosphorus 12, AST 21, ALT 34, alkaline phosphatase 67. Sedimentation rate 132. Albumin 2.4. iPTH 338. TSH 8.5. Elbow x-rays shows no acute bony injury. Lumbar spine CT shows mild spinal stenosis at L4-L5. ASSESSMENT AND PLAN: 1. Elevated troponin without chest pain. Likely secondary to the patient's underlying renal dysfunction. 2. Bilateral leg pain. The patient's sedimentation rate is markedly elevated. No obvious source of infection has been found at this time. The patient is currently on empiric antibiotic therapy. We will check an aldose level as well as an IOANA and monitor the CK closely. There is concern about calciphylaxis. 3. End stage renal disease on peritoneal dialysis. Management as per the counseling services manager. 4. Secondary hyperparathyroidism. Management as per the counseling services manager. 5. Leukocytosis. Unchanged. Continue with antibiotic therapy. 6. Hypothyroidism. Continue on Synthroid. 7. Diabetes mellitus, type 2. Continue on sliding scale insulin. 8. Deep vein thrombosis prophylaxis. Continue on heparin. cc: Amberly Jennings MD MTDD
[2018-08-16] MEDS: NORCO-7.5 PO PRN (22:08)
[2018-08-17] MEDS ORDERED: VANCOMYCIN 1 GM/NS 1 GM/250 ML IVPB IV SCH (02:00)
[2018-08-17 06:04] LABS: BASO# 0.04 X1000 (0.0-0.2); BASO% 0.2 % (0.0-0.8); EOS# 0.39 X1000 (0.0-0.7); EOS% 2.3 % (0.0-10.0); HEMOGLOBIN 9.4 g/dL (14.0-18.0); IMM GRAN# 0.11 X1000 (0.0-0.04); IMM GRAN% 0.7 % (0.0-0.5); LYMPH# 0.94 X1000 (1.2-3.4); LYMPH% 5.6 % (20.5-51.1); MCH 29.6 PG (27-31); MCHC 32.4 g/dL (33-37); MCV 91.2 FL (81-99); MONO# 0.89 X1000 (0.11-0.59); MONO% 5.3 % (1.7-9.3); MPV 11.3 FL (7.4-10.4); NEUT% 85.9 % (42.2-75.2); PLT 476 X1000 (130-400); RBC 3.18 XMIL (4.7-6.1); RDW 13.8 % (11.5-14.5); WBC 16.67 X1000 (4.8-10.8)
[2018-08-17] MEDS ORDERED: XYLOCAINE 1% INJ ONE (06:15)
[2018-08-17] MEDS: HEPARIN SUBQ SCH ×2 (06:51→17:24)
[2018-08-17] MEDS: HUMALOG SUBQ SCH ×4 (06:53→23:31)
[2018-08-17 07:09] LABS: ALBUMIN 2.4 g/dL (3.5-5.0); PHOSPHORUS 9.9 mg/dL (2.7-4.5); POTASSIUM 3.3 mmol/L (3.5-5.1)
[2018-08-17 07:11] LABS: CALCIUM 6.7 mg/dL (8.8-10.2); CREATININE 11.5 mg/dL (0.7-1.2)
[2018-08-17] MEDS: RENVELA POWDER PACKET PO SCH ×3 (09:54→17:15)
[2018-08-17] MEDS: PLAVIX PO SCH (09:54)
[2018-08-17] MEDS: SENSIPAR PO SCH (09:55)
[2018-08-17] MEDS: DOXYCYCLINE PO SCH ×2 (09:55→23:40)
[2018-08-17] MEDS: SYNTHROID PO SCH (10:05)
[2018-08-17] MEDS: ZOFRAN IV PRN ×2 (10:32→18:54)
[2018-08-17 10:45] LABS: BODY FLUID SOURCE PERITONEAL FLUID; WBC BF 10 /cumm
[2018-08-17 10:52] LABS: MONOS 83 %; POLYS 17 %
[2018-08-17] MEDS: MAXIPIME 1 GM in NS 50 ML IV SCH (13:06)
[2018-08-17] MEDS ORDERED: INSULIN PEN NEEDLES ONE (16:38)
[2018-08-17] MEDS: LEVEMIR SUBQ SCH (17:20)
[2018-08-17] MEDS: NORCO-7.5 PO PRN (19:42)
--- NOTE | 2018-08-17 20:01 | INFECTIOUS DISEASE PROGRESS NO ---
DATE: 08/17/2018 PRESENT ILLNESS: Mr. Lee is being treated for a leukocytosis with lower extremity pain and induration noted to his bilateral thighs. MEDICATIONS: He is receiving IV vancomycin per pharmacy dosing and cefepime 1 g IV every 48 hours as renally modified dosing. He is also on doxycycline 100 mg by mouth twice daily. This is day 2 of those medications. PHYSICAL EXAMINATION: Vital Signs: Temperature is 98.6 degrees, pulse rate 92, respiratory rate 18, blood pressure 109/56, O2 saturation is 100% on room air. General: This is a chronically ill- appearing, elderly gentleman. He is lying in the bed, currently in no acute distress. HEENT: Atraumatic, normocephalic. Oral mucous membranes are pink and moist. Conjunctivae are pale. Neck: Supple. Trachea is midline. Cardiovascular: Heart rate and rhythm are regular, sinus rhythm on the monitor. Respiratory: Lung sounds are clear to auscultation bilaterally. No work of breathing is noted. Abdomen: Soft, round, and nontender. Bowel sounds are active. There is a peritoneal dialysis catheter. That site is without edema, erythema, or drainage. Neurologic: He is awake, alert, and oriented. Able to move his extremities independently. Integumentary: Skin is warm and dry. He does have multiple areas of dry scabby abrasions and bruising to his upper and lower extremities, as well as indurated, tender areas to the bilateral medial thighs. LABORATORY AND X-RAY: Today, his white count is 16.67, hemoglobin 9.4, platelet count 476,000. Creatinine is 11.5. GFR 4. Creatine kinase is 217. Peritoneal fluid shows a white blood cell count of 320 with polynuclear WBCs 22 and mononuclears 78. There is a peritoneal dialysis fluid culture pending. Urine and blood cultures have shown no growth. No imaging reports today. ASSESSMENT AND PLAN: Mr. Lee is being treated for a leukocytosis with bilateral thigh pain and induration of the inner thighs. He is receiving broad-spectrum coverage using vancomycin and cefepime, which we will continue. His white count is coming down. He is also receiving doxycycline, which we will continue as well. This is being given for the possibility of a vector-borne illness after the patient has recently traveled out of [facility]. We will get blood work on Monday. These plans have been discussed with and recommended by Dr. Miles. COMORBIDITIES: For Mr. Lee, include that he is elderly, with end-stage renal disease and peritoneal dialysis, diabetes mellitus, and arthritis. Dictated by MEÑO Arango for London Miles MD cc: London Miles MD [facility]
--- NOTE | 2018-08-17 20:15 | GENERAL SURGERY CONSULTATION ---
DATE: 08/17/2018 REQUESTING PHYSICIAN: Dr. Aguillon. REASON FOR CONSULTATION: Consult concerning skin biopsy for calciphylaxis. HISTORY OF PRESENT ILLNESS: A 67-year-old gentleman with a history of chronic kidney disease, peritoneal dialysis, type 2 diabetes, hypertension, possible peripheral artery disease, hyperlipidemia, and hypothyroidism, who initially came in with lower extremity pain. There has been some concern that he might have calciphylaxis developing, although, he does not have obvious skin changes. Given this, Dr. Aguillon wanted a skin biopsy to rule it out. I was consulted. PAST MEDICAL HISTORY: Chronic kidney disease on peritoneal dialysis, type 2 diabetes, hypertension, peripheral artery disease, hyperlipidemia, hypothyroidism. PAST SURGICAL HISTORY: Includes PD catheter placement, cholecystectomy. FAMILY HISTORY: Diabetes. SOCIAL HISTORY: Does not actively smoke. ALLERGIES: None. HOME MEDICATIONS: Reviewed. MAR reviewed. REVIEW OF SYSTEMS: A full 10-point review of systems obtained and negative unless specified in HPI. PHYSICAL EXAMINATION: Vital Signs: Patient is currently afebrile. His vital signs are stable. General: No acute distress. Alert, interactive, male, looks stated age. HEENT: Normocephalic, atraumatic. Pupils equal, round, reactive to light. Mucous membranes moist. Oropharynx benign. Neck: Supple. Trachea midline. Cardiovascular: Regular rate and rhythm. Lungs: Grossly clear. Abdomen: Soft. PD catheter in place. Extremities: Pain to the medial aspect of both knees. There are some areas of induration. Vascular: Are extremities perfused. Neurologic: Grossly intact. Skin: As noted above. LABORATORY: Reviewed. ASSESSMENT AND PLAN: A 67-year-old gentleman with possible calciphylaxis needing skin biopsy. At this point, we will plan on doing this this morning. The risks, benefits, and alternatives were discussed. All questions answered. cc: Cali Herrera MD
--- NOTE | 2018-08-17 20:18 | OPERATIVE NOTE ---
PROCEDURE DATE: 08/17/2018 PREOPERATIVE DIAGNOSIS: Skin biopsy, rule out calciphylaxis. POSTOPERATIVE DIAGNOSIS: Skin biopsy, rule out calciphylaxis. PROCEDURE: Skin biopsy of left medial leg. SURGEON: Cali Herrera MD VP INFORMATICS: None. ANESTHESIA: Local, administered by the surgeon. FINDINGS: As dictated. COMPLICATIONS: None at time of dictation. ESTIMATED BLOOD LOSS: 5 mL. SPECIMEN: Skin. BRIEF HISTORY: A 67-year-old gentleman with concern about calciphylaxis. The risks, benefits and alternatives for the skin biopsy were discussed. All questions answered. DESCRIPTION OF PROCEDURE: After informed consent was obtained, the patient remained in his room in the hospital. The medial part of the left leg was prepped and draped in sterile fashion. A formal time-out was then performed confirming patient, date and procedure. All were in agreement. At that time I used a local anesthetic to anesthetize the skin. Using the 3.5 mm punch biopsy, we took 2 areas down to the skin and removed them. I used scissors and scalpel to completely remove them. We then closed it with a [id number] [id number] chromic, with good results. We placed a sterile dressing. The patient tolerated the procedure well and remained in his bed. We sent the specimen down to Pathology. cc: Cali Herrera MD
--- NOTE | 2018-08-17 21:38 | NEPHROLOGY PROGRESS NOTE ---
DATE: 08/17/2018 SUBJECTIVE: Patient resting in bed. No complaints this morning. OBJECTIVE: Vital Signs: Temperature 98 degrees, pulse 92, respiratory rate 17, blood pressure 99/55. Intake 1 L, output 350 mL. He had 1.4 L drain on his dialysis with a UF total of -54 mL. General: Middle-aged male resting in bed. No acute distress. HEENT: Normocephalic, atraumatic. Conjunctivae are pale. Oral mucosa moist. Neck: Supple. No JVD. Cardiovascular: Regular rate and rhythm with a murmur. Pulmonary: Clear bilaterally. Abdomen: Soft, positive bowel sounds. PD catheter noted. Extremities: Positive edema lower extremity. He has significant induration and hardened areas to the inner aspect of the thighs that are exceptionally tender. Integumentary: Skin is warm and dry. Neurologic: Grossly nonfocal. LABORATORY DATA: Pending. ASSESSMENT AND PLAN: 1. Chronic kidney disease 5D. We did not remove UF last night to any extent. We will try to keep him in balance. We did give him some IV fluids gently overnight so he is about a liter positive now. Continue current treatment plan. 2. Electrolytes, acid-base balance. We have changed his calcitriol to Sensipar and his binders to Renvela. Continue with this. 3. Question of hardened indurated area to inner aspect of thighs. He is to have a punch biopsy today to determine if this is actually calciphylaxis or not. Dictated by MEÑO Goode for Hermann Aguillon MD Face to face encounter, data reviewed, discussed with Carlos Levy on 08/17/18. I agree with the above assessment and plan of care. cc: Hermann Aguillon MD [facility]ENTER[facility]ocelyn
--- NOTE | 2018-08-17 22:29 | PROGRESS NOTE ---
DATE: 08/17/2018 SUBJECTIVE: The patient is resting in bed. He has no complaints. OBJECTIVE: Vital Signs: Temperature 98.8 degrees, blood pressure 131/45, heart rate 91, respirations 20, O2 saturation is 98% on room air. General: This is a chronically ill-appearing male lying in bed in no acute distress. Heart: S1, S2, normal. Lungs: Equal air entry bilaterally. No crackles. No rales. Abdomen: Positive bowel sounds. Soft, nontender, nondistended. Extremities: No edema, no cyanosis. Neurologic: Patient is alert and oriented x4. LABORATORY: Hemoglobin 9.4, hematocrit 29, white blood cell count 16, platelets 476,000. Sodium 132, potassium 3.3, chloride 89, CO2 of 16, BUN 99, creatinine 11, glucose 315, calcium 6.7, phosphorus 9.9, albumin 2.4. ASSESSMENT AND PLAN: 1. Elevated troponin. This is likely secondary to renal dysfunction. 2. Leg ulceration. The patient had a skin biopsy done. Will follow up on the pathology. 3. Leukocytosis. Improved. Continue with antibiotic therapy. 4. End stage renal disease on peritoneal dialysis. Management as per the game engineer. 5. Secondary hyperparathyroidism. Management as per the game engineer. 6. Hypothyroidism. Continue on Synthroid. 7. Diabetes mellitus type 2. Continue on sliding scale insulin. Will also add Levemir. 8. Deep vein thrombosis prophylaxis. Continue on heparin. 9. Will consult Physical Therapy. cc: Amberly Jennings MD MTDD
[2018-08-17] MEDS: SENOKOT PO SCH (23:40)
[2018-08-17] MEDS: COLACE PO SCH (23:40)
[2018-08-18] MEDS: NORCO-7.5 PO PRN ×2 (03:26→22:04)
[2018-08-18] MEDS: HUMALOG SUBQ SCH ×4 (06:52→22:05)
[2018-08-18] MEDS: HEPARIN SUBQ SCH ×2 (06:52→17:00)
[2018-08-18 06:58] LABS: BASO# 0.04 X1000 (0.0-0.2); BASO% 0.2 % (0.0-0.8); EOS# 0.55 X1000 (0.0-0.7); EOS% 3.3 % (0.0-10.0); HEMATOCRIT 27.4 % (42.0-52.0); HEMOGLOBIN 8.9 g/dL (14.0-18.0); IMM GRAN# 0.11 X1000 (0.0-0.04); IMM GRAN% 0.7 % (0.0-0.5); LYMPH# 0.99 X1000 (1.2-3.4); LYMPH% 5.9 % (20.5-51.1); MCH 29.4 PG (27-31); MCHC 32.5 g/dL (33-37); MCV 90.4 FL (81-99); MPV 11.4 FL (7.4-10.4); NEUT# 14.05 X1000 (1.4-6.5); NEUT% 83.9 % (42.2-75.2); PLT 466 X1000 (130-400); RBC 3.03 XMIL (4.7-6.1); RDW 13.7 % (11.5-14.5); WBC 16.74 X1000 (4.8-10.8)
[2018-08-18 07:26] LABS: ALBUMIN 2.5 g/dL (3.5-5.0); CREATININE 9.5 mg/dL (0.7-1.2); POTASSIUM 3.5 mmol/L (3.5-5.1)
[2018-08-18 08:13] LABS: CALCIUM 6.7 mg/dL (8.8-10.2)
--- NOTE | 2018-08-18 08:47 | Diag Imaging Result Doc PS360 ---
EXAM: ABDOMEN FLAT/UPRIGHT INDICATION: abdominal pain/constipation TECHNIQUE: 2 views COMPARISON: None. FINDINGS: There is patchy stool in the colon. There are a few mildly gas distended loops of small bowel mainly on the right side of the abdomen that are nonspecific. This may be due to constipation. There is no evidence of large volume free abdominal gas. There is no definite organomegaly. There is lower thoracic and lumbar spondylosis. IMPRESSION: Nonspecific abdomen. Electronically signed by Compa Bañuelos 08/18/2018 8:45 AM
[2018-08-18] MEDS: DOXYCYCLINE 100 MG in NS 250 ML IV SCH ×2 (09:33→22:09)
[2018-08-18] MEDS: COLACE PO SCH ×2 (09:34→22:04)
[2018-08-18] MEDS: RENVELA POWDER PACKET PO SCH ×3 (09:34→17:00)
[2018-08-18] MEDS: SENOKOT PO SCH ×2 (09:35→22:04)
[2018-08-18] MEDS: LEVEMIR SUBQ SCH (09:35)
[2018-08-18] MEDS: PLAVIX PO SCH (09:35)
[2018-08-18] MEDS: MIRALAX PO SCH ×2 (09:35→22:04)
[2018-08-18] MEDS: SENSIPAR PO SCH (09:36)
[2018-08-18] MEDS: SYNTHROID PO SCH (09:36)
[2018-08-18] MEDS: ZOFRAN IV PRN (09:37)
[2018-08-18 10:03] LABS: BODY FLUID SOURCE PERITONEAL FLUID
[2018-08-18 10:04] LABS: WBC BF 8 /cumm
[2018-08-18] MEDS ORDERED: VANCOMYCIN 1,500 MG in NS 250 ML IV SCH (15:00)
--- NOTE | 2018-08-18 21:55 | NEPHROLOGY PROGRESS NOTE ---
DATE: 08/18/2018 SUBJECTIVE: The patient is resting in bed. No complaints this morning. OBJECTIVE: Vital signs: Temperature 99 degrees, pulse 83, respiratory rate 20, blood pressure 96/69. Intake not measured. Output 366 mL. General: Middle-aged gentleman resting in bed. Awake and alert. He is in no acute distress. HEENT: Normocephalic, atraumatic. PALOMO. Neck: Supple. No JVD. Cardiovascular: Regular rate and rhythm, with a murmur. Pulmonary: Clear bilaterally. Abdomen continues with trace tenderness. Positive bowel sounds. PD catheter noted. : Not inspected. Minimal void. Extremities: Trace lower extremity edema. Continues with the hardened areas to the inner aspect of the thighs. He has a surgical dressing to the left inner aspect of his thigh. Integumentary: Skin is warm and dry. LABORATORY DATA: WBC of 16.7, hemoglobin 8.9. Sodium 136, potassium 3.5, CO2 is 21, creatinine 9.5, calcium 6.7. Phosphorus 9.0, albumin 2.5. His PD fluid had 8 WBCs. I do not have report of polynuclear or mononuclear WBCs on this report. ASSESSMENT AND PLAN: 1. Peritonitis, improving. 2. Question of calciphylaxis. The patient underwent a skin biopsy yesterday. That report is pending. Dictated by MEÑO Goode for Hermann Aguillon MD cc: Hermann Aguillon MD
--- NOTE | 2018-08-18 23:36 | PROGRESS NOTE ---
DATE: 08/18/2018 SUBJECTIVE: The patient complains of nausea with vomiting this morning. He reports that he has not had a bowel movement since admission. OBJECTIVE: Vital Signs: Temperature 99.3 degrees, blood pressure 100/71, heart rate 93, respirations 20, O2 saturations 100% on room air. General: This is a chronically ill-appearing elderly male lying in bed in no acute distress. Heart: S1, S2 normal. Regular rate and rhythm. Lungs clear to auscultation bilaterally. No wheezing. No rales. No rhonchi. Abdomen: Positive bowel sounds. Soft, nontender, nondistended. Extremities: No edema. No cyanosis. Neurologic: The patient is alert and oriented x4. LABORATORY DATA: White blood cell count 16, hemoglobin 8.9, hematocrit 27, platelets 466,000. Sodium 136, potassium 3.5, chloride 91, CO2 is 21, BUN 86, creatinine 9.5, glucose 282, calcium 6.7, phosphorus 9. DIAGNOSTIC DATA: Abdominal x-ray shows a nonspecific abdomen. ASSESSMENT AND PLAN: 1. Nausea with vomiting. This is likely secondary to constipation. The abdominal x-ray was nonspecific. We will start the patient on laxative therapy and monitor his response closely. 2. Leg induration status post biopsy. The pathology results are currently pending. 3. Leukocytosis. Unchanged. Continue with antibiotic therapy as directed by Dr. Miles. 4. Elevated troponin. Aware. This is likely secondary to the patient's underlying renal dysfunction. 5. End stage renal disease on peritoneal dialysis. Management as per the lock installer. 6. Secondary hyperparathyroidism. The patient is on phosphorus binders. 7. Hypothyroidism. Continue on Synthroid. 8. Diabetes mellitus type 2. We will add Levemir. Continue with sliding scale insulin. 9. Deep venous thrombosis prophylaxis. We will continue on heparin. 10. Continue with physical therapy. cc: Amberly Jennings MD [facility] INSANEJocelyn
[2018-08-19 01:49] LABS: CREATININE 9.7 mg/dL (0.7-1.2); POTASSIUM 3.3 mmol/L (3.5-5.1)
[2018-08-19 01:50] LABS: CALCIUM 6.3 mg/dL (8.8-10.2)
[2018-08-19] MEDS: VANCOMYCIN 1,500 MG in NS 250 ML IV SCH (02:15)
[2018-08-19] MEDS: ZOFRAN IV PRN ×3 (03:06→13:26)
[2018-08-19] MEDS: HEPARIN SUBQ SCH ×2 (05:06→19:05)
[2018-08-19] MEDS: NORCO-7.5 PO PRN (05:58)
[2018-08-19] MEDS: HUMALOG SUBQ SCH ×4 (06:42→22:24)
[2018-08-19 07:13] LABS: ALBUMIN 2.2 g/dL (3.5-5.0); CREATININE 9.1 mg/dL (0.7-1.2); POTASSIUM 3.2 mmol/L (3.5-5.1)
[2018-08-19] MEDS: RENVELA POWDER PACKET PO SCH ×3 (07:59→19:04)
[2018-08-19] MEDS: DOXYCYCLINE 100 MG in NS 250 ML IV SCH ×2 (07:59→22:25)
[2018-08-19 08:12] LABS: CALCIUM 6.8 mg/dL (8.8-10.2)
[2018-08-19 08:24] LABS: BODY FLUID SOURCE PERITONEAL FLUID; WBC BF 2 /cumm
[2018-08-19] MEDS: SYNTHROID PO SCH (10:50)
[2018-08-19] MEDS: COLACE PO SCH ×2 (10:51→22:30)
[2018-08-19] MEDS: SENOKOT PO SCH ×2 (10:51→22:30)
[2018-08-19] MEDS: PLAVIX PO SCH (10:51)
[2018-08-19] MEDS: SENSIPAR PO SCH (10:51)
[2018-08-19] MEDS: MIRALAX PO SCH ×2 (10:53→22:30)
[2018-08-19] MEDS: LEVEMIR SUBQ SCH (11:35)
[2018-08-19] MEDS: MAXIPIME 1 GM in NS 50 ML IV SCH (12:41)
--- NOTE | 2018-08-19 14:49 | Diag Imaging Result Doc PS360 ---
EXAM: CT ABD/PELVIS W/ORAL CONT ONLY INDICATION: nausea/vomiting/abdominal pain TECHNIQUE: This exam was performed using automated exposure control, adjustment of mA or kV according to patient size, and/or use of iterative reconstruction technique. COMPARISON: None. FINDINGS: There is minimal subsegmental atelectasis at the right lung base. There has been a prior cholecystectomy. There is no evidence of significant biliary dilatation. There is a moderate volume of fluid tracking around the liver and spleen and layering in the pelvis that is assumed to be related to peritoneal dialysis. A dialysis catheter is in place coiled in the pelvis. The liver and spleen are grossly unremarkable. The pancreas is somewhat atrophic and is unremarkable, otherwise. The adrenal glands are unremarkable. There are extensive vascular calcifications at the renal chapito bilaterally and the kidneys are atrophic. They are unremarkable, otherwise. The urinary bladder is grossly unremarkable. The prostate is not enlarged. There is no focal bowel wall thickening and no evidence of bowel obstruction. The remainder of the GI tract is grossly unremarkable. There is extensive aortoiliac atherosclerotic calcification and calcification of major aortic branches. There is no evidence of acute osseous abnormality. IMPRESSION: 1.Moderate volume of free fluid in the abdomen that is assumed to be related to peritoneal dialysis. 2.Extensive atherosclerotic calcification throughout the abdomen and pelvis. 3.Other incidental/nonacute findings detailed above. Electronically signed by Compa Bañuelos 08/19/2018 2:47 PM
--- NOTE | 2018-08-19 15:57 | PROGRESS NOTE ---
DATE: 08/19/2018 SUBJECTIVE: The patient is resting comfortably. He states that he still has not had a bowel movement and he is still feeling very nauseated whenever he tries to eat. OBJECTIVE: Vital Signs: Temperature 98.7 degrees, blood pressure 145/58, heart rate 89, respirations 20, O2 saturation is 98% on room air. General: This is a chronically ill-appearing elderly male, lying in bed in no acute distress. Head: Normocephalic, atraumatic. Heart: S1, S2 normal. Regular rate and rhythm. Lungs: Clear to auscultation bilaterally. Abdomen: Positive bowel sounds. Soft, nontender, nondistended. Extremities: The patient has induration on both legs. No edema noted. Neurologic: The patient is alert and oriented x4. LABORATORIES: Sodium 138, potassium 3.3, chloride 94, CO2 of 18, BUN 76, creatinine 9.7, glucose 175, magnesium 1.6. ASSESSMENT AND PLAN: 1. Nausea, vomiting, and constipation. We will continue with the laxative regimen and also consult with the chemical plant worker. 2. Leg induration status post biopsy. The pathology report is currently pending. 3. Elevated troponin. Aware. 4. End stage renal disease on peritoneal dialysis. Management as per the inter com servicer. 5. Secondary hyperparathyroidism. Continue with the current treatment regimen. 6. Hypothyroidism. Continue on Synthroid. 7. Uncontrolled diabetes mellitus type 2. Continue on Levemir and sliding scale insulin. 8. Deep vein thrombosis prophylaxis. Continue on heparin. 9. Continue with physical therapy. cc: Amberly Jennings MD MTDD
[2018-08-19] MEDS ORDERED: MAGNESIUM SULFATE 1 GM/D5W 1 GM/100 ML IVPB IV ONE (16:03)
[2018-08-19] MEDS: LACTULOSE PO SCH (22:30)
[2018-08-19] MEDS: DULCOLAX PR SCH (22:30)
[2018-08-20 06:48] LABS: HEMATOCRIT 28.7 % (42.0-52.0); HEMOGLOBIN 9.1 g/dL (14.0-18.0); MCH 29.2 PG (27-31); MCHC 31.7 g/dL (33-37); RBC 3.12 XMIL (4.7-6.1); RDW 14.1 % (11.5-14.5); WBC 15.03 X1000 (4.8-10.8)
[2018-08-20 06:49] LABS: BASO# 0.05 X1000 (0.0-0.2); BASO% 0.3 % (0.0-0.8); IMM GRAN# 0.11 X1000 (0.0-0.04); IMM GRAN% 0.7 % (0.0-0.5); LYMPH# 0.87 X1000 (1.2-3.4); LYMPH% 5.8 % (20.5-51.1); MONO# 1.23 X1000 (0.11-0.59); MONO% 8.2 % (1.7-9.3); MPV 11.3 FL (7.4-10.4); NEUT# 12.17 X1000 (1.4-6.5); PLT 457 X1000 (130-400)
[2018-08-20] MEDS: HEPARIN SUBQ SCH ×2 (06:50→21:22)
[2018-08-20] MEDS: HUMALOG SUBQ SCH ×3 (07:05→16:00)
[2018-08-20 07:14] LABS: ALBUMIN 2.3 g/dL (3.5-5.0); CALCIUM 6.5 mg/dL (8.8-10.2); PHOSPHORUS 6.6 mg/dL (2.7-4.5)
[2018-08-20 08:26] LABS: BODY FLUID SOURCE PERI DIAL FLUID; WBC BF 6 /cumm
[2018-08-20] MEDS: DOXYCYCLINE 100 MG in NS 250 ML IV SCH ×2 (08:40→21:21)
[2018-08-20] MEDS: LEVEMIR SUBQ SCH (08:40)
[2018-08-20] MEDS: RENVELA POWDER PACKET PO SCH ×3 (08:41→17:10)
[2018-08-20] MEDS ORDERED: DIPRIVAN 1% ONE (09:47)
[2018-08-20] MEDS ORDERED: XYLOCAINE-MPF 2% ONE (09:47)
--- NOTE | 2018-08-20 10:16 | ENDOSCOPY OPERATIVE NOTE ---
[facility] ENDOSCOPY OPERATIVE NOTE , PATIENT: Remy Lee ADMISSION DATE: MR#: [id number] : 1950 EGD PROCEDURE REPORT PROCEDURE DATE: 08/20/2018 SURGEON: Syed Aguillon MD STATUS: inpatient RECEIPT AND REPORT CLERK: PREOPERATIVE DIAGNOSIS: The patient is a 67 yr old male here for an EGD due to PROCEDURE PERFORMED: EGD, diagnostic MEDICATIONS: Per Anesthesia TOPICAL ANESTHETIC: none CONSENT: The patient understands the risks and benefits of the procedure and understands that these r isks include, but are not limited to: sedation, allergic reaction, infection, perforation and/or bleeding. Alternative means of evaluation and treatment include, among others: physical exam, x-rays, and/or surgical intervention. The patient elects to proceed with this endoscopic procedure. HISORY AND PHYSICAL: 08/20/2018 function. Hand hygiene and appropriate measures for infection prevention was taken. After the risks, benefits and alternatives of the procedure were thoroughly explained, Informed consent was verified, confirmed and timeout was successfully executed by the treatment team. The patient was anesthetized with topical anesthesia and the [id number]-[id number] ([id number]) endoscope was introduced through the mouth and advanced to the second portion of the duoden um. Retroflexion was performed in the stomach and revealed a hiatal hernia. The gastroscope was then slowly withdrawn and removed. ESOPHAGUS: Reflux esophagitis was found in the distal esophagus and mid esophagus. Esophagitis was L A Class C: Mucosal breaks continuous between > 2 mucosal folds, but involving less than 75% of the esophageal circumfere nce. A 1cm hiatal hernia was noted. Z line was noted at 42 cms approximately. STOMACH: Mild erosive gastritis (inflammation) was found in the gastric antrum and gastric body. DUODENUM: Mild duodenal inflammation was found in the 2nd part of the duodenum. Moderate duodenal i nflammation was found in the duodenal bulb and 1st part duodenum. SPECIMENS REMOVED: No ADVERSE EVENTS: There were no complications. POSTOPERATIVE DIAGNOSIS: 1. Reflux esophagitis in the distal esophagus and mid esophagus 2. 1cm hiatal hernia 3. Z line was noted at 42 cms approximately 4. Erosive gastritis (inflammation) was found in the gastric antrum and gastric body 5. Duodenal inflammation was found in the 2nd part of the duodenum 6. Duodenal inflammation was found in the duodenal bulb and 1st part duodenum RECOMMENDATIONS: 1. Follow up with Dr Aguillon in 4 weeks. Start Nexium 40 mg Twice daily for 3 months. 2. Begin an anti-reflux lifestyle: avoid acidic foods and drinks (like coffee and soda), do not lie down three hours after eating, elevate the head of your bed 6 to 9 inches, stop smokiing and reduce weight if needed. REPEAT EXAM: Syed Aguillon MD eSigned: Syed Aguillon MD 08/20/2018 10:17 AM Revised: 08/20/2018 10:17 AM cc: PATIENT NAME: Remy Lee MR#: [id number]
[2018-08-20] MEDS: MIRALAX PO SCH (11:02)
[2018-08-20] MEDS: SODIUM CHLORIDE 0.9% INJ PRN ×2 (11:03→21:22)
[2018-08-20] MEDS: SENOKOT PO SCH (11:03)
[2018-08-20] MEDS: SYNTHROID PO SCH (11:03)
[2018-08-20] MEDS: NEXIUM IV SCH ×2 (11:03→21:22)
[2018-08-20] MEDS: COLACE PO SCH ×2 (11:04→21:23)
[2018-08-20] MEDS: SENSIPAR PO SCH (11:04)
[2018-08-20] MEDS: LACTULOSE PO SCH (11:04)
--- NOTE | 2018-08-20 13:32 | NEPHROLOGY PROGRESS NOTE ---
DATE: 08/20/2018 SUBJECTIVE: Patient resting in bed. He states he has had continued nausea. He is supposed to go for EGD today. His is at the bedside demanding answers and wanting to transfer him to a different hospital. OBJECTIVE: Vital Signs: Temperature is 98.6 degrees, pulse 94, respiratory rate 20, blood pressure 128/55. Intake 525 mL. Output 487 mL. PHYSICAL EXAMINATION: General: Chronically ill-appearing gentleman resting in bed. He does not appear in distress. HEENT: Normocephalic, atraumatic. Oral mucosa moist. Neck: Supple without JVD. Cardiovascular: Regular rate and rhythm. Pulmonary: Equal excursion. Clear bilaterally. Abdomen: Soft with positive bowel sounds. PD catheter noted. Round. : Minimal void. Extremities: No clubbing, cyanosis. Continues with tender indurated areas to the upper inner thighs. Moving extremities. Integumentary: Skin is warm and dry. LAB DATA: WBC of 15.0, hemoglobin 9.1 sodium 133, potassium 3.0, CO2 22, creatinine 8.0. PD: WBC of 6 this morning. His phosphorus 6.6, calcium 6.5 and albumin is 2.3. ASSESSMENT AND PLAN: 1. Chronic kidney disease 5D on peritoneal dialysis. We have continued him on a 2.5 and 1.5% Dianeal solution. We did leave him with a last fill of 1.5 L, 2.5% solution patient is requesting not to have a dwell. Further orders to follow regarding that. 2. Nausea and vomiting. The patient is supposed to go for an esophagogastroduodenoscopy per Dr. Aguillon today. The family is extremely upset because he has not had a bowel movement and he has had the nausea and vomiting. They are requesting that he be transferred to a different hospital. I directed them to the primary physician to discuss that plan. 3. Indurated painful areas bilateral inner thighs. His biopsy results without inflammation/calciphylaxis. Dictated by MEÑO Goode for Hermann Aguillon MD Face to face encounter, data reviewed, discussed with Carlos Levy on 08/20/18. I agree with the above assessment and plan of care. cc: Hermann Aguillon MD [facility]
[2018-08-20] MEDS ORDERED: ULTRAM PO PRN (14:27)
[2018-08-20] MEDS ORDERED: KLOR-CON PO ONE (14:28)
--- NOTE | 2018-08-20 15:16 | PROGRESS NOTE ---
DATE: 08/20/2018 SUBJECTIVE: The patient is resting comfortably in bed. He states that he has not had a bowel movement yet but he has been refusing the Dulcolax. OBJECTIVE: Vital Signs: Temperature 98.2 degrees, blood pressure 130/65, heart rate 90, respirations 20, O2 saturation is 95% on room air. General: This is a chronically ill-appearing, elderly male lying in bed, in no acute distress. Heart: S1 and S2 normal. Regular rate and rhythm. Lungs: Clear to auscultation bilaterally. Abdomen: Positive bowel sounds. Soft, nontender, nondistended. Extremities: No edema, no cyanosis. Neurologic: The patient is alert and oriented x4. Labs: White blood cell count 15, hemoglobin 9.1, hematocrit 28, platelets 457,000. Sodium 133, potassium 3, chloride 91, CO2 22, BUN 62, creatinine 8, glucose 342, calcium 6.5, CRP 76, albumin 2.3. ASSESSMENT AND PLAN: 1. Nausea, vomiting, and constipation. The patient had an EGD this morning that revealed erosive gastritis. We will continue with the proton pump inhibitor as well as laxative therapy. 2. Elevated sedimentation rate and CRP. The patient's IOANA was negative. However, the aldose level was elevated. The case was discussed with Dr. Aguillon. Will put a consult in for Dr. Sepulveda to see the patient. 3. Leukocytosis. The patient remains on antibiotic therapy. Further management as per Dr. Miles. 4. Bronchitis. The patient is on antibiotic therapy. 5. End stage renal disease on peritoneal dialysis. Management as per the penology professor. 6. Secondary hyperparathyroidism. Continue on the current treatment regimen. 7. Hypothyroidism. Continue on Synthroid. 8. Uncontrolled diabetes mellitus type 2. Continue on Levemir and sliding scale insulin. 9. CAD. The chest CT revealed extensive CAD. Will order a stress test to be done tomorrow. 10. Deep vein thrombosis prophylaxis. Continue on heparin. 11. Continue with physical therapy. Disposition. I updated the patient and his on the plan of care. cc: Amberly Jennings MD [facility]
--- NOTE | 2018-08-20 15:31 | Diag Imaging Result Doc PS360 ---
CT THORAX W/O CONTRAST - 08/20/2018 INDICATION: dyspnea COMPARISON: None FINDINGS: There is densely calcified coronary artery disease involving all three coronary arteries. Heart size is normal with no pericardial effusion. No mass or adenopathy. There is mild bronchitis diffusely. No infiltrates. There are moderate degenerative changes of the spine. No acute or suspicious bony lesion. IMPRESSION: Bronchitis. Advanced coronary artery disease. This exam was performed using automated exposure control, adjustment of mA or kV according to patient size, and/or use of iterative reconstruction technique Electronically signed by Nicholas Yousif 08/20/2018 3:28 PM
[2018-08-20] MEDS ORDERED: KLOR-CON ONE (15:42)
[2018-08-20] MEDS: DESYREL PO SCH (21:22)
[2018-08-20] MEDS: DULCOLAX PR SCH (21:23)
--- NOTE | 2018-08-20 21:27 | INFECTIOUS DISEASE PROGRESS NO ---
DATE: 08/20/2018 PRESENT ILLNESS: The patient has an illness that had some of the following characteristics. Patient had a leukocytosis. He had extreme pain in his thighs. MEDICATIONS: Currently, the patient is on vancomycin and cefepime. He was taking doxycycline by mouth, but because it upset his stomach, he is taking it also intravenously. PHYSICAL EXAMINATION: Vital Signs: Temperature is 98.4 degrees, pulse 88, respirations 18, blood pressure 140/93. General: This is an ill-appearing elderly male. He is in no acute distress, however. Head/eyes/ears/nose/throat: He can hear my spoken words and see near objects. I do not see any oral lesions such as ulcers or white patches. Neck: No meningismus. Lungs: Clear to auscultation. Cardiovascular: Heart rate is regular. Abdomen: Soft and nontender. The patient has a dialysis catheter in place. Neurologic: The patient is alert. He can move his extremities. There is no tremor. LABS AND X-RAYS: The patient had gastroscopy today. He had erosive gastritis and esophagitis. The patient had a CT scan done, and it showed bronchitis and coronary artery disease due to calcification of the arteries. The patient's IOANA screen was negative. CBC showed the white count is 15,030, hemoglobin 9.1, platelet count 457,000. Creatinine is 8, GFR is 7. The patient's peritoneal dialysate culture was negative, and the Gram stain did not show any organisms. The white blood cell count initially was 320 and today the white blood cell count was 6. ASSESSMENT AND PLAN: As mentioned above, the patient has leukocytosis and pain in his thighs. This is clearing, and the patient is definitely feeling better. Unfortunately, I do not know the cause of these symptoms. For now, we are going to continue the patient's antibiotics. He is going to be seen by Dr. Sepulveda, the printed circuit board preassembler, and he might be able to help with a diagnosis. If he cannot, then I think it would be preferable to refer the patient. I think it would be best if we do refer to a general internal medicine clinic and then that clinic can consult subspecialties as they need to be. [facility] I think would be a good place. I think also a good choice would be the [facility]. There is one in [place]. There is one I think in [place] and also one in [place]. Probably the [place] one would be the closest. COMORBIDITIES: The patient is elderly. He has end-stage renal disease and is on peritoneal dialysis. He also is a diabetic. cc: London Miles MD
[2018-08-21] MEDS: HUMALOG SUBQ SCH ×5 (02:15→22:41)
[2018-08-21] MEDS: MIRALAX PO SCH ×3 (02:16→20:23)
[2018-08-21] MEDS: SENOKOT PO SCH ×3 (02:16→20:20)
[2018-08-21] MEDS: LACTULOSE PO SCH ×3 (02:16→20:20)
[2018-08-21] MEDS ORDERED: INSULIN PEN NEEDLES ONE (05:58)
[2018-08-21] MEDS: VANCOMYCIN 1,500 MG in NS 250 ML IV SCH (06:05)
[2018-08-21 06:11] LABS: BASO# 0.05 X1000 (0.0-0.2); BASO% 0.3 % (0.0-0.8); EOS# 0.53 X1000 (0.0-0.7); EOS% 3.5 % (0.0-10.0); HEMATOCRIT 27.8 % (42.0-52.0); HEMOGLOBIN 8.9 g/dL (14.0-18.0); IMM GRAN# 0.09 X1000 (0.0-0.04); IMM GRAN% 0.6 % (0.0-0.5); LYMPH# 1.25 X1000 (1.2-3.4); LYMPH% 8.3 % (20.5-51.1); MCH 29.5 PG (27-31); MCV 92.1 FL (81-99); MONO% 8.6 % (1.7-9.3); MPV 11.5 FL (7.4-10.4); NEUT# 11.89 X1000 (1.4-6.5); NEUT% 78.7 % (42.2-75.2); PLT 422 X1000 (130-400); RBC 3.02 XMIL (4.7-6.1); RDW 13.9 % (11.5-14.5); WBC 15.11 X1000 (4.8-10.8)
[2018-08-21] MEDS: HEPARIN SUBQ SCH ×3 (06:29→20:19)
[2018-08-21] MEDS: RENVELA POWDER PACKET PO SCH ×3 (08:36→22:42)
[2018-08-21] MEDS: SODIUM CHLORIDE 0.9% INJ PRN ×2 (08:40→20:21)
[2018-08-21] MEDS: SENSIPAR PO SCH (08:40)
[2018-08-21] MEDS: DOXYCYCLINE 100 MG in NS 250 ML IV SCH ×2 (08:40→20:11)
[2018-08-21] MEDS: NEXIUM IV SCH ×2 (08:40→20:19)
[2018-08-21] MEDS: SYNTHROID PO SCH (08:41)
[2018-08-21] MEDS: ASPIRIN EC PO SCH (08:41)
[2018-08-21] MEDS: COLACE PO SCH ×2 (08:42→20:19)
[2018-08-21] MEDS: LEVEMIR SUBQ SCH (08:42)
[2018-08-21 09:01] LABS: BODY FLUID SOURCE PERI DIAL FLUID; WBC BF 3 /cumm
[2018-08-21] MEDS ORDERED: LEXISCAN ONE (13:15)
[2018-08-21] MEDS: MAXIPIME 1 GM in NS 50 ML IV SCH (15:17)
--- NOTE | 2018-08-21 16:14 | Diag Imaging Result Document ---
PROCEDURE NAME: MYOCARDIAL PERF SCAN, STR/REST - 08/21/2018 INDICATION: Coronary disease. PROCEDURES PERFORMED: 1. Lexiscan stress. 2. One-day stress/rest myocardial perfusion imaging. PROCEDURE IN DETAIL: Mr. Lee was brought to the nuclear laboratory and had a resting study with injection of 13.7 mCi of technetium-99m sestamibi with usual imaging protocol utilized. He subsequently was brought back and had a Lexiscan stress. At peak stress, was injected with 36.8 mCi of technetium-99m sestamibi with usual imaging protocol utilized. FINDINGS: LEXISCAN STRESS RESULTS: 1. Baseline EKG shows sinus rhythm. Evidence for LVH. Somewhat diffuse ST-T wave changes. 2. Lexiscan stress did not demonstrate any clear evidence of ischemic changes. No significant changes in the ST-T segment changes. PVCs identified. PERFUSION IMAGING RESULTS: 1. No evidence of abnormal extracardiac uptake. 2. TID ratio 0.99. 3. Perfusion imaging demonstrates a small size, mild intensity, reversible defect in the apical inferior and mid inferior segments. It is more fixed in the basal inferior. This would suggest the possibility of a small amount of ischemia in the inferior wall. 4. There is a mild reduction in LV systolic function with a calculated EF of 48%. End-diastolic volume 90, end-systolic volume 47. There is some hypokinesis of the distal septum. cc: MD Amberly Medina MD
--- NOTE | 2018-08-21 17:21 | PROVIDER PROGRESS NOTE ---
Progress Note S: No acute overnight events. No N/V/F, CP, SOB, abdominal pain. He is tolerating PO. O: Last Vital Signs Temp 99.3 F 08/21/18 16:00 Pulse 115 H 08/21/18 16:00 Resp 20 08/21/18 16:00 BP 112/54 08/21/18 16:00 Pulse Ox 100 08/21/18 08:35 Height 5 ft 4 in Weight 197 lb 4 oz GEN: awake, alert, NAD HEENT: anicteric, MMM NECK: supple, no JVD CV: RRR, no murmurs PULM: CTAB, no wheezing ABD: RLQ PD catheter, obese, soft NT/ND, NABS EXT: no cce NEURO: nonfocal LABS: 08/21/18 08/21/18 05:15 05:47 WBC 15.11 H Hgb 8.9 L Plt Count 422 H POC Glucose 265 H D EGD 08/20/2018 POSTOPERATIVE DIAGNOSIS: 1. Reflux esophagitis in the distal esophagus and mid esophagus 2. 1cm hiatal hernia 3. Z line was noted at 42 cms approximately 4. Erosive gastritis (inflammation) was found in the gastric antrum and gastric body 5. Duodenal inflammation was found in the 2nd part of the duodenum 6. Duodenal inflammation was found in the duodenal bulb and 1st part duodenum A/P: Mr. Remy Lee is a 67 year old man with ESRD on PD, PAD, DM2, AOCD who was admitted with leg ulceration and weakness. GI consulted for N/V found to have LA grade C reflux esophagitis, gastritis, duodenitis, and a small hiatal hernia. His N/V has resolved. Leukocytosis noted. ID and nephrology following. # N/V: resolved; continue antiemetics prn # Esophagitis: recommend PPI BID # Duodenitis/gastritis: avoid NSAIDs # Hiatal hernia: noted # ESRD: on HD per renal # Leukocytosis: on abx; ID following # Anemia: 2/2 to AOCD: no overt bleeding Will sign off. Please call with questions.
--- NOTE | 2018-08-21 17:29 | PROGRESS NOTE ---
DATE: 08/21/2018 SUBJECTIVE: Ten week history of lower extremity pain, 2 day history of lower extremity weakness and ataxia. He describes some pain in the inner thighs and anterior thighs that was very tender. He has end-stage renal disease, on peritoneal dialysis, diabetes, history of hypertension. Dr. Aguillon has been following for his peritoneal dialysis. He uses a cycler in the evening. Currently was being resuscitated with IV fluid bolus 1500 mL total over 10 hours. When he first came in electrolyte and acid-base balance, mildly acidotic secondary to #1 peritoneal dialysis, chronic kidney disease. He had anemia that was stable, possible [id number] myocardial infarction, and then questionable sepsis with elevated white count. Infectious Disease was consulted. Leukocytosis, was unsure of etiology. He had leg pain. CPK was elevated. Concerned about some type of myositis, rhabdomyolysis. General Surgery did a skin biopsy. 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 He had a myocardial perfusion scan this morning. Lexiscan did not demonstrate any clear evidence of ischemic changes. No significant ST-T wave segment changes. PVCs were identified. Perfusion imaging demonstrated a small-sized, mild intensity reversible defect in the apical inferior and mid inferior segments with a fixed basilar inferior defect, so suggestion of ischemia in the inferior wall. Left ventricular ejection fraction was 48%. Mild reduction in left ventricular systolic function, some hypokinesis of the distal septum. On exam today he says he feels better. His legs are not is tender and he is able to ambulate and, of course, he is wanting to go home. His wants him to stay. She would like his white count to come down a little more. OBJECTIVE: Vital signs: Temperature 99.3 degrees, pulse 115, respirations 20, blood pressure 112/54. HEENT: Pupils are equal and round. Lungs: Clear in all lung almeida. Cardiovascular: Regular rhythm and rate without murmur or S3. Urine output was about 200 mL. Of course, he is on peritoneal dialysis. Blood sugars 362, 107, 265. ASSESSMENT AND PLAN: 1. Nausea, vomiting, constipation. Had an EGD that revealed erosive gastritis. Continue proton pump inhibitors, laxative treatment. 2. Elevated sedimentation rate, CRP. IOANA was negative. However, Dr. Sepulveda was consulted to see. He had tenderness and weakness in his upper legs. 3. Leukocytosis. He had been taking some steroids before he came in. His white count is down to 15,000, so it has come down. 4. End-stage renal disease. Continue peritoneal dialysis. 5. Secondary hyperparathyroidism. Aware. 6. Hypothyroidism. On Synthroid. 7. Diabetes mellitus type 2. Continue to control sugars. 8. History of coronary artery disease and possibility of coronary ischemia. There is some mild diminished left ventricular function, so we will continue current orders. MEDICATIONS: Taking Desyrel 25 mg at bedtime, heparin 5000 units subcutaneously q.8 hours, aspirin 81 mg a day, Sensipar which is cinacalcet 30 mg p.o. daily, Colace 100 mg b.i.d., doxycycline getting IV q.12, Nexium 40 mg IV twice a day, lactulose 30 mL b.i.d., Synthroid 150 mcg daily, cefepime 1 g IV q.48 hours, MiraLAX 17 g b.i.d., Senokot 1 b.i.d., sevelamer 2.4 g p.o. t.i.d., tramadol 50 mg q.6 hours. Continue present regimen. cc: Gil Connell MD
[2018-08-21] MEDS: DESYREL PO SCH (20:20)
--- NOTE | 2018-08-21 20:27 | Extremity Venous Study ---
PROCEDURE NAME: Venous U/S Bilateral Legs - 08/15/2018 INDICATIONS: The patient has bilateral leg pain. FINDINGS: Bilateral lower extremity venous images were accomplished. The common femoral, superficial femoral, deep femoral, popliteal, posterior tibial, peroneal, and greater saphenous are imaged bilaterally. Doppler is used to evaluate the veins for spontaneity, phasicity, respiratory excursion, distal augmentation. All veins are compressible. No intraluminal clot is seen. Reflux noted in the left common femoral vein. INTERPRETATION: No evidence of deep or superficial venous thrombosis in either lower extremity in the veins identified. There is left common femoral vein reflux. cc: MD Rosa Mcgill MD
--- NOTE | 2018-08-21 22:18 | NEPHROLOGY PROGRESS NOTE ---
DATE: 08/21/2018 SUBJECTIVE: Patient resting in bed. He is upset that his room is extremely cold. OBJECTIVE: Vital signs: Temperature 98.6 degrees, respiratory rate 20, blood pressure 110/77. General: This is a middle-aged gentleman resting in bed. He is in no acute distress. HEENT: Normocephalic, atraumatic. PALOMO. Neck: Supple. No JVD. Cardiovascular: Regular rate and rhythm. Pulmonary: Clear bilaterally. Abdomen: Soft, positive bowel sounds. : Not inspected. Extremities: No clubbing, cyanosis or edema. He does have areas of significant tenderness to the thighs. Integumentary: Skin is warm and dry. Neurologic: Grossly nonfocal. LABORATORIES: His peritoneal dialysis fluid cell count remains at 6. ASSESSMENT AND PLAN: End-stage renal disease. Continue on his currently prescribed peritoneal dialysis treatment. Underdialyzed at home. He is resistant to addressing this but we are discussing it. Leukocytosis/elevated CRP. Etiology is still not clear. No peritonitis. Appreciate the input of Rheumatology. OK for discharge tomorrow. He continues on vancomycin and doxycycline. Dictated by MEÑO Goode for Hermann Aguillon MD Face to face encounter, data reviewed, discussed with Carlos Levy on 08/21/18. I agree with the above assessment and plan of care. cc: Hermann Aguillon MD [facility]
[2018-08-21] MEDS: DULCOLAX PR SCH (22:39)
[2018-08-22] MEDS: HEPARIN SUBQ SCH ×2 (06:44→12:40)
[2018-08-22] MEDS: HUMALOG SUBQ SCH ×2 (06:45→12:40)
[2018-08-22 06:47] LABS: PHOSPHORUS 5.9 mg/dL (2.7-4.5)
[2018-08-22 06:50] LABS: CALCIUM 6.4 mg/dL (8.8-10.2)
[2018-08-22 07:17] LABS: ALBUMIN 2.4 g/dL (3.5-5.0)
[2018-08-22 07:28] LABS: CREATININE 7.8 mg/dL (0.7-1.2)
[2018-08-22] MEDS: SENSIPAR PO SCH (09:03)
[2018-08-22] MEDS: ASPIRIN EC PO SCH (09:04)
[2018-08-22] MEDS: RENVELA POWDER PACKET PO SCH ×2 (09:04→12:40)
[2018-08-22] MEDS: SENOKOT PO SCH (09:04)
[2018-08-22] MEDS: SYNTHROID PO SCH (09:04)
[2018-08-22] MEDS: LEVEMIR SUBQ SCH (09:04)
[2018-08-22] MEDS: DOXYCYCLINE 100 MG in NS 250 ML IV SCH ×2 (09:05→09:15)
[2018-08-22] MEDS: NEXIUM IV SCH (09:06)
[2018-08-22] MEDS: SODIUM CHLORIDE 0.9% INJ PRN (09:06)
[2018-08-22 11:04] VITALS: BP 96/70
[2018-08-22] MEDS: COLACE PO SCH (11:32)
[2018-08-22] MEDS: LACTULOSE PO SCH (11:32)
[2018-08-22] MEDS: MIRALAX PO SCH (11:33)
--- NOTE | 2018-08-22 14:18 | NEPHROLOGY PROGRESS NOTE ---
DATE: 08/22/2018 SUBJECTIVE: He is sitting up. He slept last night in an erect position. Overall feeling better. No shortness of breath, nausea, vomiting. He has been able to ambulate and leg pain is resolved. OBJECTIVE: Vital Signs: Blood pressure 107/90, heart rate 68, respirations 12, afebrile. General: No acute distress. Skin: Warm and dry. Color is improved. Conjunctivae are pink. Neck: Neck veins are not distended. Heart: Regular. No gallops. Lungs: Equal. No crackles. Abdomen: Soft, nontender. Distended. Bowel sounds present. Extremities: Have no edema, clubbing, or cyanosis. IMPRESSION: Chronic kidney disease 5D. We will increase his outpatient Dianeal to include daytime dwell. Otherwise, no changes. Okay for discharge from my perspective if okay with the team. cc: Hermann Aguillon MD
--- NOTE | 2018-08-22 17:11 | DISCHARGE SUMMARY ---
ADMISSION DATE: 08/14/2018 DISCHARGE DATE: 08/22/2018 HISTORY: He is a patient of Dr. West Hope. He recently came in he had about a 10-week history of lower extremity pain, 2-day history of lower extremity weakness and ataxia with fall. This is a 67-year-old with past medical history of: 1. Chronic kidney disease stage 5 on peritoneal dialysis. 2. Type 2 diabetes mellitus. 3. Hypertension 4. Possible peripheral artery disease 5. Hyperlipidemia. 6. Hypothyroidism. The patient came in on 08/15/2018, complaining of 10-week history of worsening lower extremity pain, posterior medial aspect of both lower extremities, worse when he tries to ambulate. He was tender to touch in the medial and anterior but mainly the medial posterior part of his thighs. The pain was sharp and shooting, sometimes radiating down to his feet. Denied any color or discoloration in the lower extremities. Denies any lower back pain, fecal or urinary incontinence, numbness, or tingling. Came in presenting because last 2 days was unable to stand. Extreme weakness trying to walk and had fallen several times. He had no control over his lower extremities. He denied any cardio respiratory system symptoms. No GI or complaints. No abdominal pain. No fever or chills. No recent change in medication. He was still able to void, but he said that the night he came in it was time for his peritoneal dialysis. Unable to extract any peritoneal fluid. Denied any lightheadedness. No polyuria or polydipsia. No visual change. No focal weakness anywhere. ADMISSION DIAGNOSES: 1. Possible onset of sepsis, early onset. 2. End-stage kidney disease appeared a little bit dry. 3. Uncontrolled diabetes mellitus type 2. 4. Hypertension. 5. Non ST elevation myocardial infarction type 2. 6. Hypothyroidism. 7. Hyperlipidemia. 8. Lower extremity weakness. 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 9. Peripheral artery disease, probably severe. HOSPITAL COURSE: The patient was started on IV Fortaz and vancomycin and cultures were obtained. Dr. Aguillon was following for nephrology, Dr. Akbar Miles for infectious disease. He had mildly elevated CK elevation. We are going to check his troponin. I would suspected this is from the chronic kidney disease and possible demand ischemia. So we followed cardiac enzymes. We did an extremity venous study on 08/15/2018. No evidence of deep or superficial venous thrombosis in the lower extremity. Nephrology was consulted. [place] he had chronic kidney disease stage 5D on peritoneal dialysis. Uses a cycler in the evening. They gave him some fluids back at 1500 mL total electrolytes and acid base. He is mildly acidic secondary to his chronic kidney disease and being a little bit dry. His anemia, hematocrit was stable and they look for possibility of cardiac ischemia. Cardiology consultation 08/15: Cardiac standpoint abnormal troponin secondary to renal insufficiency. Echocardiogram was ordered to assess left ventricular function. Infectious disease was asked to see with leukocytosis. Not sure exactly what etiology. CPK was mildly high and I wonder about possible myositis or rhabdomyolysis, so we did treat him empirically with some vancomycin. Cultures obtained. No growth from 08/14 ( 2 cultures from 08/14/2018). Urine culture from 08/15 with no growth. Fluid culture obtained 08/16 with no growth as well but assumed it was peritoneal fluid. Orthopedic was asked to see, Dr. Jordan Mendoza. Likely bilateral knee osteoarthritis. Did not feel like he had septic arthritis. His knees were irritated but this was mainly in his medial posterior thighs. Dr. Herrera I performed a skin biopsy to rule out calciphylaxis. The patient meanwhile was improving and we did do a myocardial perfusion scan on 08/21. Perfusion imaging demonstrates a small sized mild intensity reversible defect in the apical inferior and mid inferior segments, more fixed in the basilar inferior. This would suggest possibility of small amount of ischemia in the inferior wall. There was mild reduction in LV function. Ejection fraction is 48%. End-diastolic volume was 90, end systolic volume was 47. He had some hypokinesis of the distal septum. Dr. Kenny evaluated and he had some reflux esophagitis, distal esophagus and mid esophagus, 1 cm hiatal hernia. This was after an EGD and Z-line was noted at 42 cm. Erosive gastritis found in the gastric antrum and gastric body. Duodenal inflammation found in 2nd part of duodenum. Duodenal inflammation found in the duodenal bulb and 1st part of the duodenum and he then wanted to keep him on high-dose proton pump inhibitor. He improved. Did not find any evidence of vasculitis or cause for what appeared to be inflammation in his medial posterior thighs. We did stop his Zetia and his statin and have him hold that for a while. We are going to let him go home. DISCHARGE MEDICATIONS: He will be on Tylenol as needed 650 mg q.8 hours p.r.n., aspirin 81 mg a day, Dulcolax suppository 10 mg per rectum at bedtime, Sensipar which is cinacalcet 30 mg p.o. daily Colace 100 mg b.i.d., Nexium 40 mg p.o. b.i.d. for his gastritis. He is on Levemir 20 units subcutaneous daily and lactulose 30 mL b.i.d., Synthroid 150 mcg daily. MiraLAX 17 g b.i.d., Senokot 1 b.i.d., sevelamer carbonate 2.4 g p.o. t.i.d. and tramadol 50 mg q.6 hours p.r.n., Desyrel 25 mg at bedtime. FOLLOWUP: He will follow up with Dr. Aguillon and have him follow up with Dr. West Hope as well. He will continue his peritoneal dialysis as he has been doing. He is going to include a daytime dwell. cc: Gil Connell MD
== END 2018-08-22 16:52 | disposition home or self-care (01) | DRG 947 ==
LOC: ED 19:36 → SUATTDRO 19:37 → ICU 08-15 03:33 → 4N 08-17 08:01 → 1N 08-20 12:29
PROVIDERS: ATTEND Emergency Medicine
CPT/HCPCS: 71010; 71045; 71250; 72131; 73030; 73080; 74019; 74020; 74176; 78452; 80048; 80053; 80069; 80202; 81001; 82040; 82085; 82306; 82310; 82533; 82544; 82550; 82553; 82652; 82948; 83605; 83735; 83970; 84100; 84443; 84484; 85025; 85651; 86038; 86039; 86140; 87040; 87070; 87088; 88305; 88313; 89050; 89051; 93005; 93010; 93017; 93306; 93970; 94761; 96361; 96365; 96372; 97162; 97530; 99283; A9270; A9500; C8929; J0692; J0713; J1644; J1815; J2360 ×2; J2405; J2785; J3370; J3475; J7030; J7050; Q9957; XXXXX